=== PATIENT | male | born 1970 | race Hispanic/Latino ===

== ENCOUNTER 2019-10-11 08:14 | Observation (INO) | payer BC, OTHER ==
[~2019-10-11] VITALS: Ht 167.6 cm; Wt 100.7 kg
[2019-10-11] MEDS ORDERED: ASPIRIN 325 MG TAB PO ONE (09:00)
--- NOTE | 2019-10-11 09:00 | Emergency Department Note ---
History of Present Illnes History of Present Illness Chief Complaint: Back and Chest Pain History of Present Illness A This is a 49 year old male, with a history of NIDDM, hypertension, hy perlipidemia, status post MS, ASCVD with stent placement 2, and morbid obesity who presents with onset of right-sided upper back pain that started 2 days ago and is now radiating to the right upper chest. He states that the pain is more of an "ache," constant, and does seem to be worse with movement. 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 He denies any associated shortness of breath, diaphoresis, palpitations, nausea, or vomiting. Patient had coronary artery stents placed [address] Acosta, the patient has not been seen in follow-up since that time. Historian: Patient Arrival Mode: Car Assistant Editor Required: No Onset (how long ago): day(s) (2) Location: right upper back and right upper chest Quality: "ache" Radiation: Reports back Severity: moderate Onset quality: sudden Duration (how long): day(s) (2) Timing of current episode: constant Progression: unchanged Chronicity: new Context: Denies recent illness, Denies recent surgery, Denies trauma/injury Relieving factors: none Exacerbating factors: movement Associated symptoms: Denies chest pain, Denies cough, Denies fever/chills, Denies malaise, Denies nausea/vomiting, Denies rash, Denies shortness of breath, Denies syncope, Denies weakness Treatments prior to arrival: none Risk factors: Dm, HTN, MS, ASCVD s/p stents, morbid obesity Past Medical/Family History Physician Review I have reviewed the patient's past medical and family history. Any updates have been documented here. Past Medical History Recent Fever: No Clinical Suspicion of Infectio: No New/Unexplained Change in Ment: No Past Medical History: Hypertension, Diabetes (NDDM), MS (s/p stents x 2 in 2017;), Hyperlipedemia Other Medical History: Morbid Obesity Other Surgery: Wrist Social History Smoking Cessation: Never Smoker Alcohol Use: Occasional Any Illegal Drug Use: No TB Exposure/Symptoms: No Physically hurt or threatened: No Family History Family history of heart diseas: Yes Other Any Pre-Existing Lines (PICC,: No Is patient up to date on immun: No Review of Systems Review of Systems Constitutional: Denies chills, Denies fever, Denies malaise, Denies weakness EENTM: Reports no symptoms Cardiovascular: Reports chest pain; Denies edema Respiratory: Denies chest congestion, Denies cough, Denies pain with cough, Denies dyspnea Gastrointestinal: Denies abdominal pain, Denies constipation, Denies nausea, Denies vomiting Genitourinary: Denies dysuria, Denies frequency Musculoskeletal: Denies back pain, Denies muscle pain, Denies neck pain Integumentary: Denies change in color Neurological: Denies headache, Denies tingling, Denies weakness Psychological: Denies anxiety Endocrine: Reports no symptoms Hematological/Lymphatic: Reports no symptoms Review of other systems: All other systems negative Physical Exam Related Data Allergies: Coded Allergies: No Known Allergies (Unverified , 10/11/19) Vital signs reviewed: Yes Physical Exam CONSTITUTIONAL Constitutional: Present well-developed, Present well-nourished, Present morbidly obese; Absent cachectic, Absent distressed, Absent ill appearing HENT HENT: Present normocephalic, Present atraumatic, Present oropharynx clear/moist, Present nose normal; Absent nasal congestion, Absent rhinorrhea HENT L/R: Present left ext ear normal, Present right ext ear normal EYES Eyes: Reports PERRL, Reports conjunctivae normal NECK Neck: Present ROM normal PULMONARY Pulmonary: Present effort normal, Present breath sounds normal CARDIOVASCULAR Cardiovascular: Present regular rhythm, Present heart sounds normal, Present capillary refill normal, Present normal rate, Present bradycardia, Present murmur (2/6 LOBITO;), Present strong pulses, Present other (right upper chest wall, ttp, without crepitus;); Absent friction rub GASTROINTESTINAL Abdominal: Present soft, Present nontender, Present bowel sounds normal; Absent tender, Absent guarding GENITOURINARY Genitourinary: Present exam deferred SKIN Skin: Present warm, Present dry; Absent rash MUSCULOSKELETAL Musculoskeletal: Present ROM normal NEUROLOGICAL Neurological: Present alert, Present oriented x 3, Present no gross motor or sensory deficits PSYCHOLOGICAL Psychological: Present mood/affect normal, Present judgement normal Results Laboratory Laboratory CBC - nl; CMP - nl; Liver - nl; Cardiacs - normal; Lab results reviewed: Yes Imaging Imaging results reviewed: Yes Impressions [facility] [place] [address] Patient Name: NORRIS ARCINIEGA MR #: [id number] 2 : 1970 Age/Sex: 49/M Req #: [id number] Adm Physician: Ordered by: PASCALE FRANCOIS MD Report #: [id number] [facility] Room/Bed: Procedure: [id number] HOPD/CXR 2 VIEW - HOPD Exam Date: 10/11/19 Exam Time: 910 REPORT STATUS: Signed EXAMINATION: CXR 2 VIEW - HOPD INDICATION: Chest pain COMPARISON: None FINDINGS: LINES/TUBES:None LUNGS:The lungs are well-inflated. No focal consolidation or pulmonary edema. PLEURA:No pleural effusion or pneumothorax. MEDIASTINUM:The cardiomediastinal silhouette appears normal in size and shape. BONES/SOFT TISSUES:No acute osseous injury. ABDOMEN:No free air under the diaphragm. IMPRESSION: No focal pneumonia or pulmonary edema. Signed by: Leah Andersen MD on 10/11/2019 9:13 AM Dictated By: LEAH ANDERSEN MD 2 Transcribed By: ANGELIA on 10/11/19912 COPY TO: PASCALE FRANCOIS MD~ Imaging Comments CBC - normal; CMP - nl; Liver - normal; cardiacs - normal; Procedures 12 Lead ECG Interpretation ECG Interpretation : ECG: ECG 1 Assistant Editor: Interpreted by ED physician Date: Oct 11, 2019 Time: 08:17 Prior ECG tracings: not available for review Rhythm: sinus bradycardia Rate: bradycardia BPM: 48 QRS axis: normal ST segments normal: Yes T waves normal: Yes Clinical Impression: abnormal ECG Assessment & Plan Medical Decision Making MDM Case discussed with Dr. Gilbert, who will place patient in observation on telemetry, to rule out MS. 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 Patient's pain is atypical and somewhat reproducible, and located on the right side of the chest. However he is very high risk due to his multiple risk factors included a previous MS 3 years ago that required 2 cardiac stents, NIDDM, hypertension, hyperlipidemia, and morbid obesity. Pt to be placed in Obs. Tele at [facility]. 10:04 - case discussed with Dr. Gilbert; 10:25 - contacted Dr. Acosta's office for Cardiology Consult. Spoke with office and they took patient information and stated that they would contact Dr. Acosta, and relay the consult. He is apparently at the hospital, performing procedures. Assessment & Plan Final Impression: (1) Chest pain (2) Diabetes mellitus (3) Hypertension (4) Hyperlipidemia (5) Morbid obesity Depart Disposition: ADMITTED PASCALE FRANCOIS MD Oct 11, 2019 09:00
--- NOTE | 2019-10-11 09:16 | Diagnostic Imaging Report ---
EXAMINATION: CXR 2 VIEW - HOPD INDICATION: Chest pain COMPARISON: None FINDINGS: LINES/TUBES:None LUNGS:The lungs are well-inflated. No focal consolidation or pulmonary edema. PLEURA:No pleural effusion or pneumothorax. MEDIASTINUM:The cardiomediastinal silhouette appears normal in size and shape. BONES/SOFT TISSUES:No acute osseous injury. ABDOMEN:No free air under the diaphragm. IMPRESSION: No focal pneumonia or pulmonary edema. Signed by: Agatha Martin MD on 10/11/2019 9:13 AM
--- OUTSIDE RECORDS SUMMARY | 2019-10-11 09:22 | XMS REPORT | Clinical Summary ---
Author Author Claude [facility] Organization [facility] Address Unknown Phone Unavailable Care Team Providers Care Machine Group Leader Name Role Phone Angie Oneill PCP Allergies No Known Allergies Medications End Date Status Medication Sig Dispensed Refills Start Date Active clopidogrel (PLAVIX) 75 TAKE ONE (1) 3 06/23/ mg tablet TABLET(S) BY 8 MOUTH ONCE A DAY. Active olmesartan (BENICAR) 40 TAKE ONE (1) 6 MG tablet TABLET(S) BY 8 MOUTH ONCE A DAY. Active carvedilol (COREG) 25 MG TAKE ONE (1) 3 08/24 tablet TABLET(S) BY 8 MOUTH TWICE A DAY. 10/26/2019 Active metFORMIN XR Take 1 tablet 90 tablet 1 (GLUCOPHAGE-XR) 500 mg 24 (500 mg 9 hr tabletIndications: total) by Type 2 diabetes mellitus mouth daily without complication, with without long-term current breakfast. use of insulin ([facility]) 03/03/2020 Active empagliflozin 25 mg Take 1 tablet 90 tablet 1 02/23 tabletIndications: Type 2 (25 mg total) 0 diabetes mellitus without by mouth complication, without daily. long-term current use of insulin ([facility]) Active atorvastatin (LIPITOR) 20 TAKE ONE (1) 90 tablet 0 mg tabletIndications: TABLET(S) BY 0 Coronary artery disease MOUTH DAILY. involving [place] coronary artery of [place] heart without angina pectoris, Hypercholesteremia Active traZODone (DESYREL) 50 MG TAKE ONE (1) 30 tablet 0 tabletIndications: Sleep TABLET(S) BY 0 disturbances MOUTH NIGHTLY NEEDED FOR SLEEP. 10/20/2018 Discontinued prasugrel (EFFIENT) 10 mg TAKE ONE (1) 3 07/24 tablet TABLET(S) BY 8 MOUTH ONCE A DAY. 03/04/2019 Discontinued citalopram (CeleXA) 20 MG TAKE ONE (1) 6 07/24 tablet TABLET(S) BY 8 MOUTH ONCE A DAY. 10/20/2018 Discontinued (Med List Clean up) benzonatate (TESSALON) Take 100 mg 0 100 MG capsule by mouth 3 (three) times a day as needed for cough. 11/05/2018 Discontinued (Reorder) atorvastatin (LIPITOR) 20 TAKE ONE (1) 90 tablet 0 MG tabletIndications: TABLET(S) BY 9 Coronary artery disease MOUTH ONCE A involving [place] coronary DAY. artery of [place] heart without angina pectoris, Hypercholesteremia 03/04/2019 Discontinued (Reorder) atorvastatin (LIPITOR) 20 TAKE ONE (1) 90 tablet 0 MG tabletIndications: TABLET(S) BY 9 Coronary artery disease MOUTH ONCE A involving [place] coronary DAY. artery of [place] heart without angina pectoris, Hypercholesteremia 06/07/2019 Discontinued (Reorder) nystatin-triamcinolone Apply 30 g 0 (MYCOLOG) 100,000-0.1 topically 2 0 unit/gram-% (two) times a ointmentIndications: day. Penile lesion 08/28/2019 Discontinued atorvastatin (LIPITOR) 20 Take 1 tablet 90 tablet 1 MG tabletIndications: (20 mg total) 0 Coronary artery disease by mouth involving [place] coronary daily. artery of [place] heart Default OP without angina pectoris, ins Hypercholesteremia 08/30/2019 Discontinued (Med List Clean up) nystatin-triamcinolone Apply 30 g 0 (MYCOLOG) 100,000-0.1 topically 2 0 unit/gram-% (two) times a ointmentIndications: day. Penile lesion 10/03/2019 Discontinued (Reorder) traZODone (DESYREL) 50 MG Take 1 tablet 30 tablet 0 tabletIndications: Sleep (50 mg total) 0 disturbances by mouth nightly as needed for sleep. Active Problems Problem Noted Date Pounding in head 09/15/2019 Penile lesion 06/07/2019 Acute pain of left thigh 06/07/2019 Left lower quadrant pain 10/20/2018 Urinary frequency 10/20/2018 Type 2 diabetes mellitus without complication, withou t long-term current 10/20/2018 use of insulin Hypercholesteremia 02/09/2018 Heartburn 01/25/2018 Constipation 01/25/2018 Bloating 01/25/2018 Blood in stool 01/25/2018 Chronic fatigue 10/22/2017 Tonsillith 10/22/2017 Annual physical exam 08/17/2017 Anxiety 08/17/2017 Coronary artery disease involving [place] coronary art sarwat of [place] heart 08/17/2017 without angina pectoris IBS (irritable bowel syndrome) 08/02/2014 Snoring 08/02/2014 Hernia, umbilical 05/28/2009 Benign essential hypertension 04/27/2009 Obesity 04/27/2009 Encounters Care Team Description Date Type Specialty Oneill, Tram Bailey, DO Pounding in head 10/05/2019 Lab Lab 10/05/2019 Travel Oneill, Tram Bailey, DO Sleep disturbances 10/02/2019 Refill Family Medicine Angie Oneill, DO Pounding in head (Primary Dx) 09/23/2019 Orders Only Family Medicine 09/22/2019 Travel Oneill, Tram Bailey, DO Essential hypertension 09/16/2019 Lab Lab 09/16/2019 Travel Oneill, Tram Bailey, DO Essential hypertension (Primary Dx); Pounding in head 09/13/2019 Office Visit Family Medicine 09/13/2019 Travel Oneill, Tram Bailey, DO Dizziness (Primary Dx); Tensor fascia curtis syndrome; Pain of left thigh; Sleep disturbances; Coronary artery disease involving [place] coronary artery of [place] heart without angina pectoris; Benign essential hypertension 08/30/2019 Office Visit Family Medicine 08/30/2019 Travel Oneill, Tram Bailey, DO Coronary artery disease involving [place] coronary artery of [place] heart without angina pectoris; Hypercholesteremia 08/28/2019 Refill Family Medicine 08/25/2019 Travel Oneill, Tram Bailey, DO 07/27/2019 Telephone Family Medicine 07/27/2019 Travel Oneill, Tram Bailey, DO Penile lesion; Benign essential hypertension; Coronary artery disease involving [place] coronary artery of [place] heart without angina pectoris; Type 2 diabetes mellitus without complication, without long-term current use of insulin (HCC); Hypercholesteremia 06/24/2019 Lab Lab 06/24/2019 Travel Oneill, Tram Bailey, DO 06/20/2019 Telephone Internal Medicine Angie Oneill DO Benign essential hypertension (Primary D x); Coronary artery disease involving [place] coronary artery of [place] heart without angina pectoris; Type 2 diabetes mellitus without complication, without long-term current use of insulin (HCC); Hypercholesteremia; Penile lesion; Acute pain of left thigh 06/07/2019 Telemedicine [facility] Medicine 06/06/2019 Travel Angie Oneill DO Type 2 diabetes mellitus without complic ation, without long-term current use of insulin ([facility]) (Primary Dx); Dysuria; Penile lesion; Anxiety; Coronary artery disease involving [place] coronary artery of [place] heart without angina pectoris; Hypercholesteremia 03/04/2019 Office Visit [facility] Angie Oneill DO 03/01/2019 Telephone Internal Medicine Angie Oneill DO Anxiety; Hypercholesteremia; Type 2 diabetes mellitus without complication, without long-term current use of insulin (HCC); Benign essential hypertension 02/10/2019 Lab Lab Angie Oneill DO Type 2 diabetes mellitus without complic ation, without long-term current use of insulin (HCC) (Primary Dx); Anxiety; Hypercholesteremia; Benign essential hypertension; Urinary frequency; Coronary artery disease involving [place] coronary artery of [place] heart without angina pectoris 02/10/2019 Office Visit [facility] Angie Oneill DO Coronary artery disease involving [place] coronary artery of [place] heart without angina pectoris; Hypercholesteremia 11/05/2018 Refill [facility] Angie Oneill DO Type 2 diabetes mellitus without complic ation, without long-term current use of insulin (HCC) (Primary Dx); Umbilical hernia without obstruction and without gangrene 10/26/2018 Office Visit [facility] Angie Oneill DO Urinary frequency; Left lower quadrant pain; Benign essential hypertension; Hypercholesteremia; Type 2 diabetes mellitus without complication, without long-term current use of insulin (HCC) 10/20/2018 Lab Lab Angie Oneill DO Urinary frequency (Primary Dx); Left lower quadrant pain; Benign essential hypertension; Hypercholesteremia; Umbilical hernia without obstruction and without gangrene; Coronary artery disease involving [place] coronary artery of [place] heart without angina pectoris; Type 2 diabetes mellitus without complication, without long-term current use of insulin (HCC) 10/20/2018 Office Visit Family Medicine after 10/10/2018 Immunizations Name Administration Dates Next Due Tdap 08/02/2014 Family History Medical History Relation Name Comments Gout Father Diabetes Mother Hypertension Mother Relation Name Status Comments Father Mother Alive Social History Date Tobacco Use Types Packs/Day Years Used Former Smoker Cigarettes Smokeless Tobacco: Never Used Comments: 1 cig a day for about 6 months Drinks/Week oz/Week Comments Alcohol Use pt drinks about 12-1 5 beers a week Yes Sex Assigned at Date Recorded Not on file Industry Job Start Date Occupation Not on file Not on file Not on file Travel End Travel History Travel Start No recent travel history available. Date Recorded COVID-19 Exposure Response 10/05/2019 1:01 PM CDT In the last month, have you been in contact with No / Unsure someone who was confirmed or suspected to have Coronavirus / COVID-19? Last Filed Vital Signs Reading Time Taken Comments Vital Sign 119/71 09/13/2019 3:40 PM CDT Blood Pressure 65 09/13/2019 3:40 PM CDT Pulse 36.8 C (98.2 F) 09/13/2019 3:40 PM CDT Temperature - - Respiratory Rate 98% 09/13/2019 3:40 PM CDT Oxygen Saturation - - Inhaled Oxygen Concentration 101 kg (222 lb) 09/13/2019 3:40 PM CDT Weight 167.6 cm (5' 6") 09/13/2019 3:40 PM CDT Height 35.83 09/13/2019 3:40 PM CDT Body Mass Index Plan of Treatment Care Team Description Date Type Specialty Papa Oneil MD [id number] [address] 10/21/2019 Telemedicine Cardiology Health Maintenance Due Date Last Done Comments DIABETIC RETINAL EYE EXAM 1971 DIABETIC FOOT EXAM 1981 INFLUENZA VACCINE 10/25/2019 URINE MICROALBUMIN 06/23/2020 06/24/2019 Procedures Comments Procedure Name Priority Date/Time Associated Diag nosis CBC WITH PLATELET AND Routine 10/05/2019 Pounding in head DIFFERENTIAL 2:03 PM CDT MRA HEAD WO CONTRAST Routine 10/05/2019 Pounding in head 2:00 PM CDT HEMOGLOBIN A1C Routine 09/16/2019 Essential hyper tension 10:17 AM CDT TSH REFLEX TO T4F Routine 09/16/2019 Essential hy pertension 10:17 AM CDT LIPID PANEL Routine 09/16/2019 Essential hyper tension 10:17 AM CDT COMPREHENSIVE METABOLIC Routine 09/16/2019 Essent ial hypertension PANEL 10:17 AM CDT CBC WITH PLATELET AND Routine 09/16/2019 Essentia l hypertension DIFFERENTIAL 10:17 AM CDT ECG 12-LEAD Routine 08/29/2019 Dizziness 11:30 PM CDT CHLAMYDIA/N. GONORRHOEAE Routine 06/24/2019 Penil e lesion RNA, TMA 10:18 AM CDT CBC WITH PLATELET AND Routine 06/24/2019 Benign e ssential DIFFERENTIAL 10:18 AM CDT hypertension Coronary artery disease involving [place] coronary artery of [place] heart without angina pectoris Type 2 diabetes mellitus without complication, without long-term current use of insulin (HCC) Hypercholesteremia COMPREHENSIVE METABOLIC Routine 06/24/2019 Benign essential PANEL 10:18 AM CDT hypertension Coronary artery disease involving [place] coronary artery of [place] heart without angina pectoris Type 2 diabetes mellitus without complication, without long-term current use of insulin (HCC) Hypercholesteremia LIPID PANEL Routine 06/24/2019 Benign essentia l 10:18 AM CDT hypertension Coronary artery disease involving [place] coronary artery of [place] heart without angina pectoris Type 2 diabetes mellitus without complication, without long-term current use of insulin (HCC) Hypercholesteremia HEMOGLOBIN A1C Routine 06/24/2019 Benign essentia l 10:18 AM CDT hypertension Coronary artery disease involving [place] coronary artery of [place] heart without angina pectoris Type 2 diabetes mellitus without complication, without long-term current use of insulin (HCC) Hypercholesteremia MICROALBUMIN / CREATININE Routine 06/24/2019 Eamon gn essential URINE RATIO 10:18 AM CDT hypertension Coronary artery disease involving [place] coronary artery of [place] heart without angina pectoris Type 2 diabetes mellitus without complication, without long-term current use of insulin (HCC) Hypercholesteremia URINALYSIS, AUTOMATED Routine 06/24/2019 Benign e ssential WITH MICROSCOPY 10:18 AM CDT hypertension Coronary artery disease involving [place] coronary artery of [place] heart without angina pectoris Type 2 diabetes mellitus without complication, without long-term current use of insulin (HCC) Hypercholesteremia HEPATITIS B SURFACE Routine 06/24/2019 Penile les ion ANTIGEN 10:18 AM CDT HEPATITIS C ANTIBODY Routine 06/24/2019 Penile le arturo 10:18 AM CDT HIV 1/2 ANTIGEN/ANTIBODY, Routine 06/24/2019 Peni le lesion FOURTH GENERATION W/RFL 10:18 AM CDT RPR SCREEN Routine 06/24/2019 Penile lesion 10:18 AM CDT POC URINALYSIS DIPSTICK Routine 03/04/2019 Dysuri a 12:12 PM EXHIBITS CURATOR HEMOGLOBIN A1C Routine 02/10/2019 Anxiety 9:38 AM EXHIBITS CURATOR Hypercholesteremia Type 2 diabetes mellitus without complication, without long-term current use of insulin (HCC) Benign essential hypertension URINALYSIS, AUTOMATED Routine 02/10/2019 Anxiety WITH MICROSCOPY 9:38 AM EXHIBITS CURATOR Hypercholesteremia Type 2 diabetes mellitus without complication, without long-term current use of insulin (HCC) Benign essential hypertension LIPID PANEL Routine 02/10/2019 Anxiety 9:38 AM EXHIBITS CURATOR Hypercholesteremia Type 2 diabetes mellitus without complication, without long-term current use of insulin (HCC) Benign essential hypertension COMPREHENSIVE METABOLIC Routine 02/10/2019 Anxiet y PANEL 9:38 AM EXHIBITS CURATOR Hypercholesteremia Type 2 diabetes mellitus without complication, without long-term current use of insulin (HCC) Benign essential hypertension URINE CULTURE Routine 02/10/2019 Anxiety 9:38 AM EXHIBITS CURATOR Hypercholesteremia Type 2 diabetes mellitus without complication, without long-term current use of insulin (HCC) Benign essential hypertension US ABDOMINAL LIMITED Routine 10/26/2018 Left lowe r quadrant pain 8:02 AM CDT Umbilical hernia without obstruction and without gangrene HEMOGLOBIN A1C Routine 10/20/2018 Urinary frequen cy 4:28 PM CDT Left lower quadrant pain Benign essential hypertension Hypercholesteremia Type 2 diabetes mellitus without complication, without long-term current use of insulin (HCC) PROSTATE SPECIFIC ANTIGEN Routine 10/20/2018 Urin familia frequency 4:28 PM CDT Left lower quadrant pain Benign essential hypertension Hypercholesteremia Type 2 diabetes mellitus without complication, without long-term current use of insulin (HCC) TSH REFLEX TO T4F Routine 10/20/2018 Urinary freq uency 4:28 PM CDT Left lower quadrant pain Benign essential hypertension Hypercholesteremia Type 2 diabetes mellitus without complication, without long-term current use of insulin (HCC) LIPID PANEL Routine 10/20/2018 Urinary frequen cy 4:28 PM CDT Left lower quadrant pain Benign essential hypertension Hypercholesteremia Type 2 diabetes mellitus without complication, without long-term current use of insulin (HCC) COMPREHENSIVE METABOLIC Routine 10/20/2018 Urinar y frequency PANEL 4:28 PM CDT Left lower quadrant pain Benign essential hypertension Hypercholesteremia Type 2 diabetes mellitus without complication, without long-term current use of insulin (HCC) POC URINALYSIS DIPSTICK Routine 10/20/2018 Urinar y frequency 4:00 PM CDT after 10/10/2018 Results * CBC with platelet and differential (10/05/2019 2:03 PM CDT) Only the most recent of 3 results within the time period is included. WBC 10.0 3.8 - 10.8 [facility] Thousand/uL [facility] [place] RBC 4.81 4.20 - 5.80 [facility] Million/uL [facility] [place] HGB 14.8 13.2 - 17.1 g/dL [facility] [place] HCT 44.6 38.5 - 50.0 % [facility] [place] MCV 92.7 80.0 - 100.0 fL [facility] [place] MCH 30.8 27.0 - 33.0 pg [facility] [place] MCHC 33.2 32.0 - 36.0 g/dL [facility] [place] RDW 13.1 11.0 - 15.0 % [facility] [place] Platelet count 292 140 - 400 [facility] Thousand/uL [facility] [place] MPV 9.7 7.5 - 12.5 fL [facility] [place] Neutrophils, 6,890 1,500 - 7,800 [facility] absolute cells/uL [facility] [place] Lymphocytes, 2,260 850 - 3,900 cells/uL [facility] absolute [facility] [place] Monocytes, 550 200 - 950 cells/uL [facility] absolute [facility] [place] Eosinophils, 240 15 - 500 cells/uL [facility] absolute [facility] [place] Basophils, 60 0 - 200 cells/uL [facility] absolute [facility] [place] Neutrophils 68.9 % [facility] [place] Lymphocytes 22.6 % [facility] [place] Monocytes 5.5 % [facility] [place] Eosinophils 2.4 % [facility] [place] Basophils + RC 0.6 % [facility] [place] Specimen Blood Resulting Agency Comment Performing Organization Information: Site ID: [id number] Name: [facility] Address: [address] [place] [id number] Director: Girish Hernandez Performing Organization Address City/State/Zipcode Ph one Number [facility] [address] [phone] * MRA Head Wo Contrast (10/05/2019 2:00 PM CDT) Specimen Narrative Performed At [facility] Exam: Intracranial MRA without contrast History: Filling pulsation at bilateral frontal areas. Comparison studies: None Technique: 3D Intracranial Contrast: None Complications: None FINDINGS: Carotid arteries: No flow abnormalities in the intracrani al ICA's. Normal A1 and M1 segments. Vertebrobasilar Circulation: Vertebral arteries:No flow abnormalitie s. Basilar artery: Patent.No flow abnormal ities. Posterior cerebral arteries:No flow abn ormalities. origin on the right.. Normal Variants: ACom: Visualized. Pcoms: Patent right. Nonvisualized left . Vertebral arteries: Co-dominant. IMPRESSION: 1. Normal MRA Procedure Note Interface, Radiology Results Incoming - 10/05/2019 2:33 PM CDT Exam: Intracranial MRA without contrast History: Filling pulsation at bilateral frontal areas. Comparison studies: None Technique: 3D Intracranial Contrast: None Complications: None FINDINGS: Carotid arteries: No flow abnormalities in the intracranial ICA's. Normal A1 and M1 segments. Vertebrobasilar Circulation: Vertebral arteries:No flow abnormalities. Basilar artery: Patent.No flow abnormalities. Posterior cerebral arteries:No flow abnormalities. origin on the right.. Normal Variants: ACom: Visualized. Pcoms: Patent right. Nonvisualized left. Vertebral arteries: Co-dominant. IMPRESSION: 1. Normal MRA Performing Organization Address [facility] Ph one Number [facility] [address] [place] [address] * TSH reflex to T4 (09/16/2019 10:17 AM CDT) Only the most recent of 2 results within the time period is included. TSH reflex to 1.74 0.40 - 4.50 mIU/L Disrupt CK FT4 [facility] [place] Specimen Blood Resulting Agency Comment Performing Organization Information: Site ID: [id number] Name: [facility] Address: [address] [place] [id number] Director: Girish Hernandez Performing Organization Address [facility] one Number [facility] [address] [phone] * Hemoglobin A1c (09/16/2019 10:17 AM CDT) Only the most recent of 4 results within the time period is included. Hemoglobin A1C 6.5 (H) <5.7 % of total Hgb [facility] Comment: [facility] For someone without known MEHTA diabetes, a hemoglobin A1c value of 6.5% or greater indicates that they may have diabetes and this should be confirmed with a follow-up test. For someone with known diabetes, a value <7% indicates that their diabetes is well controlled and a value greater than or equal to 7% indicates suboptimal control. A1c targets should be individualized based on duration of diabetes, age, comorbid conditions, and other considerations. Currently, no consensus exists regarding use of hemoglobin A1c for diagnosis of diabetes for children. Specimen Blood Resulting Agency Comment Performing Organization Information: Site ID: [id number] Name: [facility] Address: [address] [place] [id number] Director: Girish Hernandez Performing Organization Address [facility] one Number [facility] [place] [phone] * Lipid panel (09/16/2019 10:17 AM CDT) Only the most recent of 4 results within the time period is included. [facility] Cholesterol, 134 <200 mg/dL [facility] total [facility] [place] HDL cholesterol 45 > OR = 40 mg/dL [facility] [place] Triglycerides 124 <150 mg/dL [facility] [place] LDL cholesterol 68 mg/dL (calc) [facility] calculated Comment: [facility] Reference range: <100 [place] Desirable range <100 mg/dL for primary prevention; <70 mg/dL for patients with CHD or diabetic patients with > or = 2 CHD risk factors. LDL-C is now calculated using the Bossman calculation, which is a validated novel method providing better accuracy than the Friedewald equation in the estimation of LDL-C. William MAYFIELD et al. SHERRY. 2013;310(19): 6222-2086 (http://education.[employer]/faq/LYP686) Cholesterol/HDL 3.0 <5.0 (calc) [facility] ratio [facility] [place] Non-HDL 89 <130 mg/dL (calc) [facility] cholesterol Comment: DIAGNOST[facility] For patients with diabetes [place] plus 1 major ASCVD risk factor, treating to a non-HDL-C goal of <100 mg/dL (LDL-C of <70 mg/dL) is considered a therapeutic option. Specimen Blood Resulting Agency Comment Performing Organization Information: Site ID: [id number] Name: [facility] Address: [address] [place] [id number] Director: Girish Hernandez Performing Organization Address City/[facility] one Number [facility] [place] [phone] * Comprehensive metabolic panel (09/16/2019 10:17 AM CDT) Only the most recent of 4 results within the time period is included. [facility] Glucose 98 65 - 99 mg/dL [facility] Comment: DI[facility]NOST[facility] Fasting [place] reference interval BUN 12 7 - 25 mg/dL [facility] [place] Creatinine 0.80 0.60 - 1.35 mg/dL [facility] [place] EGFR Non-Afr. 106 > OR = 60 [facility] [place] mL/min/1.73m2 [facility] EGFR 122 > OR = 60 [facility] [place] mL/min/1.73m2 [facility] [place] BUN/creatinine NOT APPLICABLE 6 - 22 (calc) [facility] ratio [facility] [place] Sodium 138 135 - 146 mmol/L [facility] [place] Potassium 4.6 3.5 - 5.3 mmol/L [facility] [place] Chloride 103 98 - 110 mmol/L [facility] [place] CO2 24 20 - 32 mmol/L [facility] [place] Calcium 8.8 8.6 - 10.3 mg/dL [facility] [place] Protein 7.0 6.1 - 8.1 g/dL [facility] [place] Albumin, S 4.2 3.6 - 5.1 g/dL [facility] [place] Globulin, total 2.8 1.9 - 3.7 g/dL [facility] (calc) [facility] [place] Albumin/globuli 1.5 1.0 - 2.5 (calc) [facility] n ratio [facility] [place] Total bilirubin 0.5 0.2 - 1.2 mg/dL [facility] [place] Alkaline 102 36 - 130 U/L [facility] phosphatase [facility] [place] AST 27 10 - 40 U/L [facility] [place] ALT 23 9 - 46 U/L [facility] [place] Specimen Blood Resulting Agency Comment Performing Organization Information: Site ID: [id number] Name: [facility] Address: [address] [place] [phone] Director: Girish Hernandez Performing Organization Address City/State/[facility] Ph one Number [facility] [address] [phone] * ECG 12 lead (08/29/2019 11:30 PM CDT) Ventricular 50 [facility] rate Atrial rate 50 [facility] MD interval 130 [facility] QRSD interval 90 [facility] QT interval 452 [facility] QTC interval 412 [facility] P axis 1 36 [facility] QRS axis 1 34 [facility] T wave axis 55 [facility] EKG impression Sinus bradycardia-Nonspecific [facility] E T wave abnormality-Abnormal ECG-No previous ECGs available- Specimen Narrative Performed At This result has an attachment that is n ot available. Performing Organization Address City/State/[facility] Ph one Number [facility] [address] [place] [address] * CHLAMYDIA/N. GONORRHOEAE RNA, TMA (06/24/2019 10:18 AM CDT) Chlamydia NOT DETECTED NOT DETECTED [facility] trachomatis DIAGNOSTICS RNA, TMA [place] Neisseria NOT DETECTED NOT DETECTED [facility] gonorrhoeae DIAGNOSTICS RNA, TMA [place] (Always Comment: [facility] message) The analytical performance DIAGNOSTIC S characteristics of this MEHTA assay, when used to test SurePath(TM) specimens have been determined by [facility]. The modifications have not been cleared or approved by the FDA. This assay has been validated pursuant to the CLIA regulations and is used for clinical purposes. For additional information, please refer to https://education.MiniTime.Groupon/faq/RQT631 (This link is being provided for information/ educational purposes only.) Specimen Blood Resulting Agency Comment Performing Organization Information: Site ID: [id number] Name: [facility] Address: [address] [place] [phone] Director: Girish Hernandez Performing Organization Address City/State/Zipcode Ph one Number [facility] [address] [phone] * HIV 1/2 ANTIGEN/ANTIBODY, FOURTH GENERATION W/RFL (06/24/2019 10:18 AM CDT) HIV AG/AB 4th NON-REACTIVE NON-REACTIVE [facility] gen Comment: DIAGNOSTICS HIV-1 antigen and HIV-1/HIV-2 [place] antibodies were not detected. There is no laboratory evidence of HIV infection. PLEASE NOTE: This information has been disclosed to you from records whose confidentiality may be protected by state law. If your state requires such protection, then the state law prohibits you from making any further disclosure of the information without the specific written consent of the person to whom it pertains, or as otherwise permitted by law. A general authorization for the release of medical or other information is NOT sufficient for this purpose. For additional information please refer to http://education.[employer].Groupon/faq/CHK884 (This link is being provided for informational/ educational purposes only.) The performance of this assay has not been clinically validated in patients less than 2 years old. Specimen Blood Resulting Agency Comment Performing Organization Information: Site ID: [id number] Name: [facility] Address: [address] [place] [phone] Director: Girish Hernandez Performing Organization Address [facility] one Number [facility] [place] [phone] * Hepatitis C antibody (06/24/2019 10:18 AM CDT) Pathologist [facility] Hepatitis C Ab NON-REACTIVE NON-REACTIVE [facility] Signal/cutoff 0.01 <1.00 [facility] Comment: DIAGNOSTICS HCV antibody was non-reactive. [place] There is no laboratory evidence of HCV infection. In most cases, no further action is required. However, if recent HCV exposure is suspected, a test for HCV RNA (test code 18039) is suggested. For additional information please refer to http://education.makerSQR/faq/RMV69l8 (This link is being provided for informational/ educational purposes only.) Specimen Blood Resulting Agency Comment Performing Organization Information: Site ID: [id number] Name: [facility] Address: [address] [place] [phone] Director: Girish Hernandez Performing Organization Address [facility] one Number [facility] [place] [address] * Microalbumin / creatinine urine ratio (06/24/2019 10:18 AM CDT) Pathologist [facility] Creatinine, 72 20 - 320 mg/dL [facility] urine, random DIAGNOSTICS [place] Microalbumin, 1.0 See Note: mg/dL [facility] urine Comment: DIAGNOSTICS Reference Range: [place] Reference Range Not established Microalbumin/cr 14 <30 mcg/mg creat [facility] eatinine ratio Comment: DIAGNOSTICS The ADA defines abnormalities ME[place]A in albumin excretion as follows: Category Result (mcg/mg creatinine) Normal <30 Microalbuminuria 30-299 Clinical albuminuria > OR = 300 The ADA recommends that at least two of three specimens collected within a 3-6 month period be abnormal before considering a patient to be within a diagnostic category. Specimen Blood Resulting Agency Comment Performing Organization Information: Site ID: [id number] Name: [facility] Address: [address] [place] [phone] Director: Girish Hernandez Performing Organization Address [facility] one Number [facility] [place] [phone] * RPR screen (06/24/2019 10:18 AM CDT) RPR (monitor) NON-REACTIVE NON-REACTIVE [facility] w/refl titer DIAGNOSTICS [place] Specimen Blood Resulting Agency Comment Performing Organization Information: Site ID: RGA Name: [email or web address] Address: [address] [place] [phone] Director: Girish Hernandez Performing Organization Address [facility] Ph one Number [facility] [place] [phone] * Hepatitis B surface antigen (06/24/2019 10:18 AM CDT) Pathologist [facility] Hepatitis B NON-REACTIVE NON-REACTIVE [facility] surface Ag DIAGNOSTICS [place] Specimen Blood Resulting Agency Comment Performing Organization Information: Site ID: RGA Name: [facility] Address: [address] [place] [phone] Director: Girish Hernandez Performing Organization Address [facility] Ph one Number [facility] [address] [phone] * Urinalysis, automated with microscopy (06/24/2019 10:18 AM CDT) Only the most recent of 2 results within the time period is included. Color, UA YELLOW YELLOW [facility] [place] Appearance CLEAR CLEAR [facility] [place] Specific 1.025 1.001 - 1.035 [facility] gravity, urine DIAGNOSTICS [place] pH, urine < OR = 5.0 5.0 - 8.0 [facility] [place] Glucose, urine 3+ (A) NEGATIVE [facility] [place] Bilirubin, UA NEGATIVE NEGATIVE [facility] [place] Ketones, UA NEGATIVE NEGATIVE [facility] [place] Occult blood, NEGATIVE NEGATIVE [facility] urine [facility] [place] Protein, UA NEGATIVE NEGATIVE [facility] [place] Nitrite, UA NEGATIVE NEGATIVE [facility] [place] Leukocyte NEGATIVE NEGATIVE [facility] esterase, UA DI[facility]NOSTICS [place] WBC, UA NONE SEEN < OR = 5 /HPF [facility] [place] RBC, UA NONE SEEN < OR = 2 /HPF [facility] [place] Squamous NONE SEEN < OR = 5 /HPF [facility] epithelial DIAGNOSTICS cells, UA [place] Bacteria, UA NONE SEEN NONE SEEN /HPF [facility] [place] Hyaline casts, NONE SEEN NONE SEEN /LPF [facility] UA [facility]ICS [place] Specimen Blood Resulting Agency Comment Performing Organization Information: Site ID: [id number] Name: [facility] Address: [address] [place] [phone] Director: Girish Hernandez Performing Organization Address [facility] one [facility] [place] [employer] [place] [phone] * POC urinalysis dipstick (03/04/2019 12:12 PM EXHIBITS CURATOR) Only the most recent of 2 results within the time period is included. Color urine, Yellow POC Clarity urine, Clear POC Glucose urine, 3+ (A) Negative POC Bilirubin Negative Negative urine, POC Ketones urine, Negative Negative POC Specific 1.020 1.005 - 1.030 gravity urine, POC Blood urine, Trace (A) Negative POC pH urine, POC 5.5 5.0, 5.5, 6.0, 6.5, 7.0, 7.5, 8.0, 8.5 Protein urine, Negative Negative POC Urobilinogen <2.0 <2.0 urine, POC Nitrite urine, Negative Negative POC Leukocyte Negative Negative esterase urine, POC Specimen Urine * Urine culture (02/10/2019 9:38 AM EXHIBITS CURATOR) Urine culture SEE NOTE [facility] Comment: DIAGNOSTICS CULTURE, URINE, [facility] Micro Number: [id number] Test Status: Final Specimen Source: URINE Specimen Quality: Adequate Result: No Growth Specimen Urine Resulting Agency Comment Performing Organization Information: Site ID: [facility] Name: [facility] Address: [address] [place] [phone] Director: Girish Hernandez Performing Organization Address [facility] one [facility] [place] [employer] [place] [phone] * US Abdominal Limited (10/26/2018 8:02 AM CDT) Specimen Narrative Performed At EXAMINATION: US ABDOMINAL LIMITED [facility] INDICATION: Left lower quadrant pain. COMPARISON: None available TECHNIQUE: Targeted ultrasound of the l eft lower quadrant in the area of concern was performed. IMPRESSION: 1. Targeted ultrasound of the left lo wer quadrant demonstrates no sonographically visible abnormality. 2. Targeted ultrasound of the umbilic us demonstrates evidence of a prior umbilical hernia repair. With Valsalva, there is a small recurrent umbilical hernia containing fat with a neck measu ring up to approximately 5 mm. Procedure Note Interface, Radiology Results Incoming - 10/26/2018 8:34 AM CDT EXAMINATION: US ABDOMINAL LIMITED INDICATION: Left lower quadrant pain. COMPARISON: None available TECHNIQUE: Targeted ultrasound of the left lower quadrant in the area of concern was performed. IMPRESSION: 1. Targeted ultrasound of the left lowe r quadrant demonstrates no sonographically visible abnormality. 2. Targeted ultrasound of the umbilicus demonstrates evidence of a prior umbilical hernia repair. With Valsalva, there is a small recurrent umbilical hernia containing fat with a neck measuring up to approximately 5 mm. Performing Organization Address [facility] one Number [facility] [address] [place] [address] * Prostate specific antigen (10/20/2018 4:28 PM CDT) PSA 1.0 < OR = 4.0 ng/mL [facility] Comment: DIAGNOSTICS The total PSA value from this [place] assay system is standardized against the WHO standard. The test result will be approximately 20% lower when compared to the equimolar-standardized total PSA (Noel [place]). Comparison of serial PSA results should be interpreted with this fact in mind. This test was performed using the Siemens chemiluminescent method. Values obtained from different assay methods cannot be used interchangeably. PSA levels, regardless of value, should not be interpreted as absolute evidence of the presence or absence of disease. Specimen Blood Resulting Agency Comment Performing Organization Information: Site ID: RGA Name: [facility] Address: [address] [place] [phone] Director: Girish Hernandez Performing Organization Address 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
--- OUTSIDE RECORDS SUMMARY | 2019-10-11 09:22 | XMS REPORT | Continuity of Care Document ---
Author Author [facility] t Organization [facility] Address 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 Role Phone Alvarenga DO, Bailey Tram PCP Gabrielle FRANCOIS Attphys Unavailable Alvarenga DO, Bailey Tram Attphys Payers Payer Name Policy Type Policy Number Effective Date Expiration Date S ource BCBSBCBS CHOICE PPO/FEDERAL EMPL PPOxxxxxxxxxxxx2014-Pre sentPPO xxxxxxxxxxxx 2014 00:00:00 Claude Rasmussen Problems Condition Name Condition Details Condition Category Status Onset Date Resolution Date Last Treatment Date Treating Clinician Comments Source Pounding in head Pounding in head Disease Active 2019-09-15 00:00:00 Claude Rasmussen Penile lesion Penile lesion Disease Active 2019-06-07 00:00:00 Claude Rasmussen Acute pain of left thigh Acute pain of left thigh Disease Acti ve 2019-06-07 00:00:[address] Left lower quadrant pain Left lower quadrant pain Disease Acti ve 2018-10-20 00:00:[address] Urinary frequency Urinary frequency Disease Active 2018-10-20 00:00:00 Claude Rasmussen Type 2 diabetes mellitus without complic ation, without long-term current use of insulin Type 2 diabetes mellitus without complic ation, without long-term current use of insulin Disease Active 2018-10-20 00:00:00 Claude Rasmussen Hypercholesteremia Hypercholesteremia Disease Active 2018-02-09 00:00:0 0 Claude Rasmussen Heartburn Heartburn Disease Active 2018-01-25 00:00:00 Claude Rasmussen Constipation Constipation Disease Active 2018-01-25 00:00:00 Claude Rasmussen Bloating Bloating Disease Active 2018-01-25 00:00:00 Claude Rasmussen Blood in stool Blood in stool Disease Active 2018-01-25 00:00:00 Claude Rasmussen Chronic fatigue Chronic fatigue Disease Active 2017-10-22 00:00:00 Claude Rasmussen Tonsillith Tonsillith Disease Active 2017-10-22 00:00:00 Claude Rasmussen Annual physical exam Annual physical exam Disease Active 00:00:00 Claude Rasmussen Anxiety Anxiety Disease Active 2017-08-17 00:00:00 Claude Rasmussen Coronary artery disease involving sen[place]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[place] heart without angina pectoris Coronary artery disease involving [place]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[place] heart without angina pectoris Disease Active 2017-08-17 00:00:00 Claude Rasmussen IBS (irritable bowel syndrome) IBS (irritable bowel syndrome) Disea se Active 2014-08-02 00:00:00 Claude Rasmussen Snoring Snoring Disease Active 2014-08-02 00:00:00 Claude Rasmussen Hernia, umbilical Hernia, umbilical Disease Active 2009-05-28 00:00:00 Claude Rasmussen Benign essential hypertension Benign essential hypertension Disease Active 2009-04-27 00:00:00 Claude Rasmussen Obesity Obesity Disease Active 2009-04-27 00:00:00 Claude Rasmussen Allergies, Adverse Reactions, Alerts This patient has no known allergies or adverse reactions. Family History Family Member Diagnosis Comments Start Date Stop Date Source Natural father Gout [facility] Natural mother Diabetes [facility] Natural mother Hypertension Claude Rasmussen Social History Social Habit Start Date Stop Date Quantity Comments Source History of tobacco use Cigarette Smoker Claude Rasmussen Sex Assigned At [facility] Exposure to SARS-CoV-2 (event) Not sure Claude Rasmussen Alcohol intake 2019-09-15 00:00:00 2019-09-15 00:00:00 Current drinker of alcohol (finding) Claude Rasmussen Tobacco Comment 2017-08-17 00:00:00 2017-08-17 00:00:00 1 cig a day for about 6 months Claude Rasmussen Alcohol Comment 2017-08-17 00:00:00 2017-08-17 00:00:00 pt drink s about 12-15 beers a week Claude Rasmussen Smoking Status Start Date Stop Date Source Former smoker 2019-09-15 00:00:00 2019-09-15 00:00:00 Claude Rasmussen Medications Ordered Medication Name Filled Medication Name Start Date Stop Da te Current Medication? Ordering Clinician Indication Dosage Frequency Signature (SIG) Comments Components Source traZODone (DESYREL) 50 MG tablet 2019-10-03 00:00:00 Yes Sleep disturbances TAKE ONE (1) TABLET(S) BY MOUTH NIGHTLY A S NEEDED FOR SLEEP. Claude Rasmussen traZODone (DESYREL) 50 MG tablet 2019-08-30 00:00:00 2019-09 17:18:43 No Sleep disturbances 50mg QD Take 1 tablet (50 mg total) by mouth nightly as needed for sleep. Claude Rasmussen atorvastatin (LIPITOR) 20 mg tablet 2019-08-28 00:00:00 Yes Hypercholesteremia TAKE ONE (1) TABLET(S) BY MOUTH DAILY. Claude Rasmussen nystatin-triamcinolone (MYCOLOG) 100,000-0.1 unit/gram-% oin tment 2019-06-07 00:00:00 2019-08-30 00:00:00 No Penile lesion Q.5D Apply topically 2 (two) times a day. Claude Rasmussen empagliflozin 25 mg tablet 2019-03-04 00:00:00 2020-03-03 23 :59:00 No Type 2 diabetes mellitus without complication, without long-term current use of insulin (HCC) 25mg QD Take 1 tablet (25 mg total) by mouth daily. Claude Rasmussen atorvastatin (LIPITOR) 20 MG tablet 2019-03-04 00:00:0 0 2019-08-28 00:00:00 No Hypercholesteremia 20mg QD Take 1 ta blet (20 mg total) by mouth daily. Default OP ins Claude Rasmussen nystatin-triamcinolone (MYCOLOG) 100,000-0.1 unit/gram-% oin tment 2019-03-04 00:00:00 2019-06-07 00:00:00 No Penile lesion Q.5D Apply topically 2 (two) times a day. Claude Rasmussen atorvastatin (LIPITOR) 20 MG tablet 2018-11-05 00:00:0 0 2019-03-04 00:00:00 No Hypercholesteremia TAKE ONE (1) TABLET(S) BY ISABELLA TH ONCE A DAY. Claude Rasmussen metFORMIN XR (GLUCOPHAGE-XR) 500 mg 24 hr tablet 2018-10-26 00:00:00 2019-10-26 23:59:00 No Type 2 diabetes sigifredo itus without complication, without long-term current use of insulin (HCC) 500mg QD T yola 1 tablet (500 mg total) by mouth daily with breakfast. Claude Sheridan odrandal benzonatate (TESSALON) 100 MG capsule 2018-10-20 15:38 :36 2018-10-20 00:00:00 No 100mg Q.[id number] Take 100 mg by mouth 3 (three) times a day as needed for cough. Claude Rasmussen atorvastatin (LIPITOR) 20 MG tablet 2018-08-10 00:00:0 0 2018-11-05 00:00:00 No Hypercholesteremia TAKE ONE (1) TABLET(S) BY ISABELLA TH ONCE A DAY. Claude Rasmussen olmesartan (BENICAR) 40 MG tablet 2017-10-15 00:00:00 Yes TAKE ONE (1) TABLET(S) BY MOUTH ONCE A DAY. Isaias Rasmussen carvedilol (COREG) 25 MG tablet 2017-08-24 00:00:00 Yes TAKE ONE (1) TABLET(S) BY MOUTH TWICE A DAY. Claude Rasmussen prasugrel (EFFIENT) 10 mg tablet 2017-08-07 00:00:00 2018-09 00:00:00 No TAKE ONE (1) TABLET(S) BY MOUTH ONCE A DAY. Claude Rasmussen citalopram (CeleXA) 20 MG tablet 2017-08-04 00:00:00 2019-02 00:00:00 No TAKE ONE (1) TABLET(S) BY MOUTH ONCE A DAY. Claude Rasmussen clopidogrel (PLAVIX) 75 mg tablet 2017-06-23 00:00:00 Yes TAKE ONE (1) TABLET(S) BY MOUTH ONCE A DAY. [facility] Immunizations Ordered Immunization Name Filled Immunization Name Date Status Comments Source Tdap 2014-08-02 00:00:00 Completed [facility] Vital Signs Vital Name Observation Time Observation Value Comments Source Systolic blood pressure 2019-09-13 15:40:00 119 mm[Hg] Claude Rasmussen Diastolic blood pressure 2019-09-13 15:40:00 71 mm[Hg] Claude Rasmussen Heart rate 2019-09-13 15:40:00 65 /min Claude Rasmussen Body temperature 2019-09-13 15:40:00 36.78 Indu H[employer] jelly [facility] Body height 2019-09-13 15:40:00 167.6 cm Claude Rasmussen Body weight 2019-09-13 15:40:00 100.699 kg Claude Rasmussen BMI 2019-09-13 15:40:00 35.83 kg/m2 Claude Rasmussen Oxygen saturation in Arterial blood by Pulse oximetry 09-12 15:40:00 98 /min Claude Rasmussen Procedures Procedure Date / Time Performed Performing Clinician Sour e CBC WITH PLATELET AND DIFFERENTIAL 2019-10-05 14:03:00 Alvarenga, Timoteo dee Lynn Rasmussen MRA HEAD WO CONTRAST 2019-10-05 14:00:08 Alvarenga, Angie Rasmussen CBC WITH PLATELET AND DIFFERENTIAL 2019-09-16 10:17:00 Alvarenga, Timoteo dee Bailey Claude Rasmussen COMPREHENSIVE METABOLIC PANEL 2019-09-16 10:17:00 Alvarenga, Angie Rasmussen LIPID PANEL 2019-09-16 10:17:00 Alvarenga, Angie [facility] TSH REFLEX TO T4F 2019-09-16 10:17:00 Alvarenga, Angie Arce [facility] HEMOGLOBIN A1C 2019-09-16 10:17:00 Alvarenga, Angie [facility] ECG 12-LEAD 2019-08-29 23:30:26 Alvarenga, Angie [facility] RPR SCREEN 2019-06-24 10:18:00 Alvarenga, Angie [facility] HIV 1/2 ANTIGEN/ANTIBODY, FOURTH GENERATION W/RFL 2019-06-24 10:18:00 Alvarenga, Angie [facility] HEPATITIS C ANTIBODY 2019-06-24 10:18:00 Alvarenga, Angie mayo [facility] HEPATITIS B SURFACE ANTIGEN 2019-06-24 10:18:00 Alvarenga, Angie Arce [facility] URINALYSIS, AUTOMATED WITH MICROSCOPY 2019-06-24 10:18:00 Alvarenga, Angie Rasmussen MICROALBUMIN / CREATININE URINE RATIO 2019-06-24 10:18:00 Alvarenga, Angie Lazaroist HEMOGLOBIN A1C 2019-06-24 10:18:00 Alvarenga, Angie [facility] LIPID PANEL 2019-06-24 10:18:00 AlvarengaAngie [facility] COMPREHENSIVE METABOLIC PANEL 2019-06-24 10:18:00 AlvarengaAngie [facility] CBC WITH PLATELET AND DIFFERENTIAL 2019-06-24 10:18:00 AlvarengaTimoteo [facility] CHLAMYDIA/N. GONORRHOEAE RNA, TMA 2019-06-24 10:18:00 Alvarenga Angie [facility]ce [facility] POC URINALYSIS DIPSTICK 2019-03-04 12:12:00 Alvarenga Angie Bailey Krista Rasmussen URINE CULTURE 2019-02-10 09:38:00 AlvarengaAngie [facility] COMPREHENSIVE METABOLIC PANEL 2019-02-10 09:38:00 Alvarenga Angie [facility] LIPID PANEL 2019-02-10 09:38:00 AlvarengaAngie [facility] URINALYSIS, AUTOMATED WITH MICROSCOPY 2019-02-10 09:38:00 Mai Angie [facility]ce [facility] HEMOGLOBIN A1C 2019-02-10 09:38:00 AlvarengaAngie [facility] US ABDOMINAL LIMITED 2018-10-26 08:02:41 Alvarenga Angie Vazquez maria esther Rasmussen COMPREHENSIVE METABOLIC PANEL 2018-10-20 16:28:00 AlvarengaAngie Claude Rasmussen LIPID PANEL 2018-10-20 16:28:00 AlvarengaAngie [facility] TSH REFLEX TO T4F 2018-10-20 16:28:00 Mai Angie Arce [facility] PROSTATE SPECIFIC ANTIGEN 2018-10-20 16:28:00 Mai Angie Bailey Renzo juradoston [facility] HEMOGLOBIN A1C 2018-10-20 16:28:00 AlvarengaAngie [facility] POC URINALYSIS DIPSTICK 2018-10-20 16:00:00 Mai Angie Bailey Krista Rasmussen Plan of Care Planned Activity Planned Date Details Comments Source Future Scheduled Test 2020-06-23 00:00:00 URINE MICROALBUMIN [code = URINE MICROALBUMIN] Claude Rasmussen Future Scheduled Test 2019-10-25 00:00:00 INFLUENZA VACCINE [code = INFLUENZA VACCINE] Claude Rasmussen Future Scheduled Test 1981 00:00:00 DIABETIC FOOT EXAM [code = DIABETIC FOOT EXAM] Claude Rasmussen Future Scheduled Test 1970 00:00:00 DIABETIC RETINAL E YE EXAM [code = DIABETIC RETINAL EYE EXAM] Claude Rasmussen Encounters Start Date/Time End Date/Time Encounter Type Admission Type [facility] Care Department Encounter ID Source 2019-10-05 00:00:00 2019-10-05 00:00:00 Outpatient ALVARENGA, TRAM HM [facility] [id number] [facility] 2019-10-05 00:00:00 2019-10-05 00:00:00 Outpatient ALVARENGA, TRAM HM H [facility] [id number] [facility] 2019-09-16 00:00:00 2019-09-16 00:00:00 Outpatient ALVARENGA, TRAM HM H [facility] [id number] [facility] 2019-09-13 00:00:00 2019-09-13 00:00:00 Outpatient ALVARENGA, TRAM HM H [facility] [id number] [facility] 2019-08-30 00:00:00 2019-08-30 00:00:00 Outpatient ALVARENGA, TRAM HM H [facility] [id number] [facility] 2019-06-24 00:00:00 2019-06-24 00:00:00 Outpatient ALVARENGA, TRAM HM H HM [id number] [facility] 2019-06-07 00:00:00 2019-06-07 00:00:00 Outpatient ALVARENGA, TRAM HM H [facility] [id number] [facility] Results Test Description Test Time Test Comments Results Result Comments Source CXR 2 VIEW - HOPD 2019-10-11 09:13:00 [place] [address] Patient Name: NORRIS ARCINIEGA MR #: [id number] : 1970 Age/Sex: 49/M Req #: [id number] Adm Physician: Ordered by: PASCALE FRANCOIS MD Report #: [id number] Location: [facility] Room/Bed: Procedure: [id number] HOPD/CXR 2 VIEW - HOPD Exam Date: 10/11/19 Exam Time: 910 REPORT STATUS: Signed EXAMINATION: CXR 2 VIEW - HOPD INDICATION: Chest pain COMPARISON: None FINDINGS: LINES/TUBES:None LUNGS:The lungs are well-inflated. No focal consolidation or pulmonary edema. PLEURA:No pleural effusion or pneumothorax. MEDIASTINUM:The cardiomediastinal silhouette appears normal in size and shape. BONES/SOFT TISSUES:No acute osseous injury. ABDOMEN:No free air under the diaphragm. IMPRESSION: No focal pneumonia or pulmonary edema. Signed by: Leah Andersen MD on 10/11/2019 9:13 AM Dictated By: LEAH ANDERSEN MD 2 Transcribed By: ANGELIA on 10/11/19912 COPY TO: PASCALE FRANCOIS MD CBC with platelet and differential 2019-10-06 07:05:00 Test Item WBC (test code = 6690-2) 10.0 3.8- 10.8 Thousand/uL RBC (test code = 789-8) 4.81 4.20- 5.80 Million/uL HGB (test code = 718-7) 14.8 g/dL 13.2-17.1 HCT (test code = 4544-3) 44.6 % 38.5-50 MCV (test code = 787-2) 92.7 fL 80-100 MCH (test code = 785-6) 30.8 pg 27-33 MCHC (test code = 786-4) 33.2 g/dL 32-36 RDW (test code = 788-0) 13.1 % 11-15 Platelet count (test code = 777-3) 292 140- 400 Thousand/u L MPV (test code = 776-5) 9.7 fL 7.5-12.5 Neutrophils, absolute (test code = 751-8) 6890 1,500 - 7,80 0 cells/uL Lymphocytes, absolute (test code = 731-0) 2260 850- 3,900 c ells/uL Monocytes, absolute (test code = 742-7) 550 200- 950 cells /uL Eosinophils, absolute (test code = 711-2) 240 15- 500 cell s/uL Basophils, absolute (test code = 704-7) 60 0- 200 cells/u L Neutrophils (test code = 770-8) 68.9 % Lymphocytes (test code = 736-9) 22.6 % Monocytes (test code = 5905-5) 5.5 % Eosinophils (test code = 713-8) 2.4 % Basophils + RC (test code = 706-2) 0.6 % RAC (test code = RAC) Performing Organization Info rmation: Site ID: RGA Name: [facility] Address: [address] [place] [phone] Director: Girish Hernandez [place] [id number] 08:02:00* Test Item Value Reference Range Interpretation Comments Glucose (test code = 2345-7) 98 mg/dL 65-99 Fasting reference interval BUN (test code = 3094-0) 12 mg/dL 7-25 Creatinine (test code = 2160-0) 0.80 mg/dL 0.6-1.35 EGFR Non-Afr. Cymraes (test code = 2775) 106 > OR = 60 mL /min/1.73m2 EGFR (test code = 57408-7) 122 > OR = 60 mL/min/1.73m2 BUN/creatinine ratio (test code = 3097-3) NOT APPLICABLE 6- 22 (alea c) Sodium (test code = 2951-2) 138 mmol/L 135-146 Potassium (test code = 2823-3) 4.6 mmol/L 3.5-5.3 Chloride (test code = 2075-0) 103 mmol/L 98-110 CO2 (test code = 2027-9) 24 mmol/L 20-32 Calcium (test code = 40777-0) 8.8 mg/dL 8.6-10.3 Protein (test code = 2885-2) 7.0 g/dL 6.1-8.1 Albumin, S (test code = 1751-7) 4.2 g/dL 3.6-5.1 Globulin, total (test code = 27081-6) 2.8 1.9- 3.7 g/dL (c alc) Albumin/globulin ratio (test code = 1759-0) 1.5 1.0- 2.5 ( calc) Total bilirubin (test code = 1974-2) 0.5 mg/dL 0.2-1.2 Alkaline phosphatase (test code = 6768-6) 102 U/L 36-130 AST (test code = 1920-8) 27 U/L 10-40 ALT (test code = 1742-6) 23 U/L 9-46 RAC (test code = RAC) Performing Organization Info rmation: Site ID: RGA Name: [facility] Address: [address] [place] [phone] Director: Girish Hernandez [facility] [id number] 08:02:00* Test Item Value Reference Range Interpretation Comments Cholesterol, total (test code = 2093-3) 134 mg/dL <200 HDL cholesterol (test code = 2085-9) 45 mg/dL > OR = 40 Triglycerides (test code = 2571-8) 124 mg/dL <150 LDL cholesterol calculated (test code = 61745-4) 68 mg/dL (calc) Reference range: <100 Desirable range <100 mg/dL for primary prevention; <70 mg/dL for patients with CHD or diabetic patients with > or = 2 CHD risk factors. LDL-C is now calculated using the William-Mary calculation, which is a validated novel method providing better accuracy than the Friedewald equation in the estimation of LDL-C. William SS et al. SHERRY. 2013;310(19): 8317-8420 (http:/ /education.[employer]/faq/YWU442) Cholesterol/HDL ratio (test code = 9830-1) 3.0 <5.0 (calc) Non-HDL cholesterol (test code = 86706-9) 89 <130 mg/dL ( calc) For patients with diabetes plus 1 major ASCVD risk factor, treating to a non-HDL-C goal of <100 mg/dL (LDL-C of <70 mg/dL) is considered a therapeutic option. RAC (test code = RAC) Performing Organization Info rmation: Site ID: RGA Name: [facility] Address: [address] [place] [phone] Director: Girish Hernandez [place] [facility] [id number] 08:02:00* Test Item Value Reference Range Interpretation Comments Hemoglobin A1C (test code = 4548-4) 6.5 <5.7 % of total Hg b H For someone without known diabetes, a hemoglobin O9enogxh of 6.5% or greater indicates that they [...] considerations. Currently, no consensus exists regarding use ofhemoglobin A1c for diagnosis of diabetes for children. RAC (test code = RAC) Performing Organization Info rmation: Site ID: RGA Name: [facility] Address: [address] [place] [address] Director: Girish Hernandez Lab Interpretation (test code = 65393-9) Abnormal [place] [facility] reflex to [id number] 08:02:00* Test Item Value Reference Range Interpretation Comments TSH reflex to FT4 (test code = 3016-3) 1.74 0.40- 4.50 mIU/ L RAC (test code = RAC) Performing Organization Info rmation: Site ID: RGA Name: [facility] Address: [address] [place] [address] Director: Girish Arce MethodistECG 12 [id number] 11:40:26* Test Item Value Reference Range Interpretation Comments Ventricular rate (test code = 253) 50 Atrial rate (test code = 255) 50 IL interval (test code = 266) 130 QRSD interval (test code = 260) 90 QT interval (test code = 264) 452 QTC interval (test code = 265) 412 P axis 1 (test code = 267) 36 QRS axis 1 (test code = 268) 34 T wave axis (test code = 270) 55 EKG impression (test code = 273) Sinus bradycardia-Non specific T wave abnormality-Abnormal ECG-No previous ECGs available- [place] [facility], automated with [id number] 22:09:00* Test Item Value Reference Range Interpretation Comments Color, UA (test code = 5778-6) YELLOW YELLOW Appearance (test code = 5767-9) CLEAR CLEAR Specific gravity, urine (test code = 5811-5) 1.025 1.001-1.0 35 pH, urine (test code = 5803-2) < OR = 5.0 5.0-8.0 Glucose, urine (test code = 64123-9) 3+ NEGATIVE A Bilirubin, UA (test code = 5770-3) NEGATIVE NEGATIVE Ketones, UA (test code = 2514-8) NEGATIVE NEGATIVE Occult blood, urine (test code = 5794-3) NEGATIVE NEGATIVE Protein, UA (test code = 24993-1) NEGATIVE NEGATIVE Nitrite, UA (test code = 5802-4) NEGATIVE NEGATIVE Leukocyte esterase, UA (test code = 5799-2) NEGATIVE NEGATIVE WBC, UA (test code = 5821-4) NONE SEEN < OR = 5 /HPF RBC, UA (test code = 59635-9) NONE SEEN < OR = 2 /HPF Squamous epithelial cells, UA (test code = 58572-6) NONE SEEN < OR = 5 /HPF Bacteria, UA (test code = 5769-5) NONE SEEN NONE SEEN /HPF Hyaline casts, UA (test code = 5796-8) NONE SEEN NONE SEEN /LPF RAC (test code = RAC) Performing Organization Info rmation: Site ID: RGA Name: [facility] Address: [address] [place] [phone] Director: Girish Hernandez Lab Interpretation (test code = 20893-2) Abnormal [place] [facility] [facility] B surface [id number] 22:09:00* Test Item Value Reference Range Interpretation Comments Hepatitis B surface Ag (test code = 5196-1) NON-REACTIVE NON-REACTI VE RAC (test code = RAC) Performing Organization Info rmation: Site ID: RGA Name: [facility] Address: [address] [place] [phone] Director: Girish Hernandez [place] Methodist[facility]PR [id number] 22:09:00* Test Item Value Reference Range Interpretation Comments RPR (monitor) w/refl titer (test code = 57096-4) NON-REACTIVE NON-R EACTIVE RAC (test code = RAC) Performing Organization Info rmation: Site ID: [place] Name: [facility] Address: [address] [place] [phone] Director: Girish Hernandez [place] [facility]album[facility] / creatinine urine [id number] 22:09:00* Test Item Value Reference Range Interpretation Comments Creatinine, urine, random (test code = 2161-8) 72 mg/dL 20-320 Microalbumin, urine (test code = 33221-6) 1.0 mg/dL See Note: Reference Range:Reference RangeNot established Microalbumin/creatinine ratio (test code = 9318-7) 14 <30 mcg/mg creat The ADA defines abnormalities in albuminexcretion as follows: Category Result (mcg/mg creatinine) Normal <30Microalbuminuria 30-299 Clinical albuminuria > OR = 300 The ADA recommends that at least two of threespecimens collected within a 3-6 month period beabnormal before considering a patient to bewithin a diagnostic category. RAC (test code = RAC) Performing Organization Info rmation: Site ID: [place] Name: [facility] Address: [address] [place] [phone] Director: Girish Hernandez [place] [facility] C [id number] 22:09:00* Test Item Value Reference Range Interpretation Comments Hepatitis C Ab (test code = 46667-0) NON-REACTIVE NON-REACTIVE Signal/cutoff (test code = 73300-5) 0.01 <1.00 HCV antibody was non-reactive. There is no laboratory evidence of HCV infection. In most cases, no further action is required. However,if recent HCV exposure is suspected, a test for HCV RNA(test code 64395) is suggested. For additional information please refer tohttp://education.[employer]/faq/IMJ09b0(This link is being provided for informational/educational purposes only.) RAC (test code = RAC) Performing Organization Info rmation: Site ID: [place] Name: [facility] Address: [address] [place] [phone] Director: Girish Hernandez [place] [facility] 1/2 ANTIGEN/ANTIBODY, FOURTH GENERATION [id number] 22:09:00* Test Item Value Reference Range Interpretation Comments HIV AG/AB 4th gen (test code = 00726-2) NON-REACTIVE NON-REACTIVE HIV-1 antigen and HIV-1/HIV-2 antibodies were notdetected. There is no laboratory evidence of HIVinfection. PLEASE NOTE: This information has been disclosed toyou from records whose confidentiality may beprotected by state law. If your state requires suchprotection, then the state law prohibits you frommaking any further disclosure of the informationwithout the specific written consent of the persont o whom it pertains, or as otherwise permitted by law.A general authorization for the release of medical orother information is NOT sufficient for this purpose. For additional information please refer t ohttp://education.[employer]/faq/FFA435(This link is being provided for informational/educational purposes only.) The performance of this assay has not been clinicallyvalidated in patients less than 2 years old. EMMA (test code = EMMA) Performing Organization Info rmation: Site ID: RGA Name: [facility] Address: [address] [place] [phone] Director: Girish Arce MethodrandalCHLAMYDIA/N. GONORRHOEAE RNA, [id number] 14:43:00* Test Item Value Reference Range Interpretation Comments Chlamydia trachomatis RNA, TMA (test code = 89562-9) NOT DETECTE D NOT DETECTED Neisseria gonorrhoeae RNA, TMA (test code = 99625-0) NOT DETECTE D NOT DETECTED (Always message) (test code = 2647) The analytical performance characteristics of thisassay, when used to test SurePath(TM) specimens have beendetermined by [facility]. The modifications havenot been cleared or approved by the FDA. This assay hasbeen validated pursuant to the CLIA regulations and isused for clinical purposes. For additional information, please refer tohttps://education.[employer]/faq/OWB173(This link is being provided for information/educational purposes only.) EMMA (test code = EMMA) Performing Organization Info rmation: Site ID: RGA Name: [facility] Address: [address] [place] [phone] Director: Girish Hernandez [facility] urinalysis [id number] 12:12:00* Test Item Value Reference Range Interpretation Comments Color urine, POC (test code = 2415793) Yellow Clarity urine, POC (test code = 6874581) Clear Glucose urine, POC (test code = 1958535) 3+ Negative A Bilirubin urine, POC (test code = 6468866) Negative Negative Ketones urine, POC (test code = 3569517) Negative Negative Specific gravity urine, POC (test code = 2732041) 1.020 1.00 5-1.030 Blood urine, POC (test code = 6036325) Trace Negative A pH urine, POC (test code = 1488831) 5.5 5.0, 5.5, 6. 0, 6.5, 7.0, 7.5, 8.0, 8.5 Protein urine, POC (test code = 2272327) Negative Negative Urobilinogen urine, POC (test code = 7146599) <2.0 <2.0 Nitrite urine, POC (test code = 5208403) Negative Negative Leukocyte esterase urine, POC (test code = 8858171) Negative Ne gative Lab Interpretation (test code = 79202-7) Abnormal [place] [facility] [id number] 21:41:00* Test Item Value Reference Range Interpretation Comments Urine culture (test code = 630-4) SEE NOTE CULTURE, URINE, ROUTINE Micro Number: [id number] Test Status: Final Specimen Source: URINE Specimen Quality: Adequate Result: No Growth RAC (test code = RAC) Performing Organization Info rmation: Site ID: RGA Name: [facility] Address: [address] [place] [phone] Director: Girish Hernandez [facility] specific [id number] 06:17:00* Test Item Value Reference Range Interpretation Comments PSA (test code = 2857-1) 1.0 ng/mL < OR = 4.0 The total PSA value from this assay system is standardized against the WHO standard. The test result will be approximately 20% lower when compared to the equimolar-standardized total PSA (Noel Sidney). Comparison of serial PSA results should be interpreted with this fact in mind. This test was performed using the Siemens chemiluminescent method. Values obtained from different assay methods cannot be usedinterchangeably. PSA levels, regardless ofvalue, should not be interpreted as absoluteevidence of the presence or absence of disease. EMMA (test code = RAC) Performing Organization Info rmation: Site ID: RGA Name: [facility] Address: [address] [place] [phone] Director: Girish Rasmussen
[2019-10-11] MEDS ORDERED: ASPIRIN 81 MG CHEW TAB PO ONE (10:15)
[2019-10-11] MEDS ORDERED: SODIUM CHLORIDE FLUSH 10 ML SYR INJ PRN (10:15)
[2019-10-11] MEDS ORDERED: ONDANSETRON HCL INJ 2MG/ML 2ML 2 MG/ML VIAL IV PRN (10:15)
--- OUTSIDE RECORDS SUMMARY | 2019-10-11 10:26 | XMS REPORT | Continuity of Care Document ---
Author Author [facility] t Organization [facility] Address [address] [place] [address] Phone Unavailable Care Team Providers Care Company Marker Name Role Phone Alvarenga DO, Bailey Tram [...] 00:00:00 Claude Rasmussen Coronary artery disease involving [place] coronary artery of [place] heart without angina pectoris Coronary artery disease involving [place] coronary artery of [place] heart without angina pectoris Disease Active 2017-08-17 [...] Date Stop Date Source Natural father Gout [facility] Natural mother Diabetes [facility] Natural mother Hypertension Claude Rasmussen Social History Social Habit Start Date Stop Date Quantity Comments Source History of tobacco use Cigarette Smoker Claude Rasmussen Sex Assigned At [facility] Exposure to SARS-CoV-2 (event) Not sure Claude [...] 2018-10-20 15:38 :36 2018-10-20 00:00:00 No 100mg [id number] Take 100 mg by mouth 3 (three) times a day as needed for cough. Claude Rasmussne atorvastatin (LIPITOR) 20 MG tablet 2018-08-10 00:00:0 [...] BY MOUTH ONCE A DAY. [facility] Immunizations Ordered Immunization Name Filled Immunization Name Date Status Comments Source Tdap 2014-08-02 00:00:00 Completed [facility] Vital Signs Vital Name Observation Time Observation Value Comments Source Systolic blood pressure 2019-09-13 15:40:00 119 mm[Hg] Claude Rasmussen Diastolic blood pressure 2019-09-13 15:40:00 71 mm[Hg] Claude Rasmussen Heart rate 2019-09-13 15:40:00 65 /min Claude Rasmussen Body temperature 2019-09-13 15:40:00 36.78 Indu [place] [facility] Body height 2019-09-13 15:40:00 167.6 cm Claude [...] GENERATION W/RFL 2019-06-24 10:18:00 Alvarenga, Angie Arce [facility] HEPATITIS C ANTIBODY 2019-06-24 10:18:00 Alvarenga, Angie mayo [facility] HEPATITIS B SURFACE ANTIGEN 2019-06-24 10:18:00 Alvarenga, Angie Arce [facility] URINALYSIS, AUTOMATED WITH MICROSCOPY 2019-06-24 10:18:00 Alvarenga, Angie Rasmussen MICROALBUMIN / CREATININE URINE RATIO 2019-06-24 10:18:00 Alvarenga, Angie Lazaroist HEMOGLOBIN A1C 2019-06-24 10:18:00 Alvarenga, Angie Arce [facility] LIPID PANEL 2019-06-24 10:18:00 AlvarengaAngie Met [facility]ist COMPREHENSIVE METABOLIC PANEL 2019-06-24 10:18:00 AlvarengaAngie [facility] CBC WITH PLATELET AND DIFFERENTIAL 2019-06-24 10:18:00 AlvarengaTimoteo [facility] CHLAMYDIA/N. GONORRHOEAE RNA, TMA 2019-06-24 10:18:00 Alvarenga Angie [facility]ce [facility] POC URINALYSIS DIPSTICK 2019-03-04 12:12:00 Alvarenga Angie Bailey Krista Rasmussen URINE CULTURE 2019-02-10 09:38:00 AlvarengaAngie [facility] COMPREHENSIVE METABOLIC PANEL 2019-02-10 09:38:00 Alvarenga Angie Arce [facility] LIPID PANEL 2019-02-10 09:38:00 AlvarengaAngie [facility] URINALYSIS, AUTOMATED WITH MICROSCOPY 2019-02-10 09:38:00 Mai Angie Arce [facility] HEMOGLOBIN A1C 2019-02-10 09:38:00 AlvarengaAngie [facility] US ABDOMINAL LIMITED 2018-10-26 08:02:41 Alvarenga Angie Vazquez maria esther Rasmussen COMPREHENSIVE METABOLIC PANEL 2018-10-20 16:28:00 AlvarengaAngie Claude Rasmussen LIPID PANEL 2018-10-20 16:28:00 AlvarengaAngie [facility] TSH REFLEX TO T4F 2018-10-20 16:28:00 Mai Angie Arce M [facility] PROSTATE SPECIFIC ANTIGEN 2018-10-20 16:28:00 Mai Angie Bailey Renzo [facility] HEMOGLOBIN A1C 2018-10-20 16:28:00 AlvarengaAngie [facility] [...] End Date/Time Encounter Type Admission Type [facility] Care Department Encounter ID Source 2019-10-05 00:00:00 2019-10-05 00:00:00 Outpatient ALVARENGA, TRAM HM [facility] [id number] [facility] 2019-10-05 00:00:00 2019-10-05 00:00:00 Outpatient ALVARENGA, TRAM HM H [facility] [id number] [facility] 2019-09-16 00:00:00 2019-09-16 00:00:00 Outpatient ALVARENGA, TRAM HM H [facility] [id number] [facility] 2019-09-13 00:00:00 2019-09-13 00:00:00 Outpatient ALVARENGA, TRAM HM H [facility] [id number] Arce [facility] 2019-08-30 00:00:00 2019-08-30 00:00:00 Outpatient ALVARENGA, TRAM HM H [facility] [id number] Arce [facility] 2019-06-24 00:00:00 2019-06-24 00:00:00 Outpatient ALVARENGA, TRAM HM H HM [id number] [facility] 2019-06-07 00:00:00 2019-06-07 00:00:00 Outpatient ALVARENGA, TRAM HM H [facility] [id number] [facility] Results Test Description Test Time Test Comments Results Result Comments Source CXR 2 VIEW - HOPD 2019-10-11 09:13:00 [place] [address] Patient Name: NORRIS ARCINIEGA MR #: [id number] : 1970 Age/Sex: 49/M Req #: [id number] Adm Physician: Ordered by: PASCALE FRANCOIS MD Report #: [id number] Location: [facility] Room/Bed: Procedure: [id number] HOPD/CXR 2 VIEW - HOPD Exam Date: [...] Organization Info rmation: Site ID: RGA Name: [facility] Address: [address] [place] [phone] Director: Girish Heranndez [facility] [id number] 08:02:00* Test Item Value Reference Range Interpretation Comments Glucose (test code = 2345-7) 98 mg/dL 65-99 Fasting reference interval BUN (test code = 3094-0) 12 mg/dL 7-25 Creatinine (test code = 2160-0) 0.80 mg/dL 0.6-1.35 EGFR Non-Afr. Malaysian (test code = 2775) 106 > OR = 60 mL /min/1.73m2 EGFR (test code = 73094-6) 122 > OR = 60 mL/min/1.73m2 BUN/creatinine ratio (test code = 3097-3) NOT APPLICABLE 6- 22 (alea c) Sodium (test code = 2951-2) 138 mmol/L 135-146 Potassium (test code = 2823-3) 4.6 mmol/L 3.5-5.3 Chloride (test code = 2075-0) 103 mmol/L 98-110 CO2 (test code = 2027-9) 24 mmol/L 20-32 Calcium (test code = 22835-1) 8.8 mg/dL 8.6-10.3 Protein (test code = 2885-2) 7.0 g/dL 6.1-8.1 Albumin, S (test code = 1751-7) 4.2 g/dL 3.6-5.1 Globulin, total (test code = 31201-6) 2.8 1.9- 3.7 g/dL (c alc) Albumin/globulin [...] Organization Info rmation: Site ID: RGA Name: [facility] Address: [address] [place] [phone] Director: Girish Hernandez [facility] MethodistLipid [id number] 08:02:00* Test Item Value Reference Range Interpretation Comments Cholesterol, total (test code = 2093-3) 134 mg/dL <200 HDL cholesterol (test code = 2085-9) 45 mg/dL > OR = 40 Triglycerides (test code = 2571-8) 124 mg/dL <150 LDL cholesterol calculated (test code = 30672-3) 68 mg/dL (calc) Reference range: <100 Desirable range <100 mg/dL for primary prevention; <70 mg/dL for patients with CHD or diabetic patients with > or = 2 CHD risk factors. LDL-C is now calculated using the William-Mary calculation, which is a validated novel method providing better accuracy than the Friedewald equation in the estimation of LDL-C. William SS et al. SHERRY. 2013;310(19): 2566-1365 (http:/ /education.hint/faq/AIT850) Cholesterol/HDL ratio (test code = 9830-1) 3.0 <5.0 (calc) Non-HDL cholesterol (test code = 28594-6) 89 <130 mg/dL ( calc) For patients with diabetes plus 1 major ASCVD risk factor, treating to a non-HDL-C goal of <100 mg/dL (LDL-C of <70 mg/dL) is considered a therapeutic option. RAC (test code = RAC) Performing Organization Info rmation: Site ID: RGA Name: [facility] [place] Address: [address] [place] [phone] Director: Girish Hernandez [facility] MethodistHemoglobin [id number] 08:02:00* Test Item Value Reference Range Interpretation Comments Hemoglobin A1C (test code = 4548-4) 6.5 <5.7 % of total Hg b H For someone without known diabetes, a hemoglobin U3poawgf of 6.5% or greater indicates that they [...] Organization Info rmation: Site ID: RGA Name: [facility] [place] [facility] Address: [address] [place] [address] Director: Girish Hernandez Lab Interpretation (test code = 01673-9) Abnormal [facility] MethodistTSH reflex to [id number] 08:02:00* Test Item Value Reference Range Interpretation Comments TSH reflex to FT4 (test code = 3016-3) 1.74 0.40- 4.50 mIU/ L RAC (test code = RAC) Performing Organization Info rmation: Site ID: RGA Name: [facility] Address: [address] [place] [address] Director: Girish Arce MethodistECG 12 [id number] 11:40:26* Test Item Value Reference Range Interpretation Comments Ventricular rate (test code = 253) 50 Atrial rate (test code = 255) 50 HI interval (test code = 266) 130 QRSD [...] T wave abnormality-Abnormal ECG-No previous ECGs available- [facility] MethodistUrinalysis, automated with [id number] 22:09:00* Test Item Value Reference Range Interpretation Comments Color, UA (test code = 5778-6) YELLOW YELLOW Appearance (test code = 5767-9) CLEAR CLEAR Specific gravity, urine (test code = 5811-5) 1.025 1.001-1.0 35 pH, urine (test code = 5803-2) < OR = 5.0 5.0-8.0 Glucose, urine (test code = 76141-7) 3+ NEGATIVE A Bilirubin, UA (test code = 5770-3) NEGATIVE NEGATIVE Ketones, UA (test code = 2514-8) NEGATIVE NEGATIVE Occult blood, urine (test code = 5794-3) NEGATIVE NEGATIVE Protein, UA (test code = 25710-5) NEGATIVE NEGATIVE Nitrite, UA (test code = 5802-4) NEGATIVE NEGATIVE Leukocyte esterase, UA (test code = 5799-2) NEGATIVE NEGATIVE WBC, UA (test code = 5821-4) NONE SEEN < OR = 5 /HPF RBC, UA (test code = 24740-1) NONE SEEN < OR = 2 /HPF Squamous epithelial cells, UA (test code = 84317-8) NONE SEEN < OR = 5 /HPF Bacteria, UA (test code = 5769-5) NONE SEEN NONE SEEN /HPF Hyaline casts, UA (test code = 5796-8) NONE SEEN NONE SEEN /LPF RAC (test code = RAC) Performing Organization Info rmation: Site ID: RGA Name: [facility] [place] [facility] Address: [address] [place] [phone] Director: Girish Hernandez Lab Interpretation (test code = 84903-0) Abnormal [facility] MethodistHepatitis B surface [id number] 22:09:00* Test Item Value Reference Range Interpretation Comments Hepatitis B surface Ag (test code = 5196-1) NON-REACTIVE NON-REACTI VE RAC (test code = RAC) Performing Organization Info rmation: Site ID: RGA Name: [facility] [place] [facility] Address: [address] [place] [phone] Director: Girish Henrandez [facility] MethodistRPR [id number] 22:09:00* Test Item Value Reference Range Interpretation Comments RPR (monitor) w/refl titer (test code = 93944-0) NON-REACTIVE NON-R EACTIVE RAC (test code = RAC) Performing Organization Info rmation: Site ID: [place] Name: [facility] [place] Address: [address] [place] [phone] Director: Girish Hernandez [facility]ismMicroalbumin / creatinine urine [id number] 22:09:00* Test Item Value Reference Range Interpretation Comments Creatinine, urine, random (test code = 2161-8) 72 mg/dL 20-320 Microalbumin, urine (test code = 77967-5) 1.0 mg/dL See Note: Reference Range:Reference RangeNot [...] Organization Info rmation: Site ID: [place] Name: [facility] [place] [facility] Address: [address] [place] [phone] Director: Girish Hernandez [facility] AdventismHepatitis C [id number] 22:09:00* Test Item Value Reference Range Interpretation Comments Hepatitis C Ab (test code = 08070-3) NON-REACTIVE NON-REACTIVE Signal/cutoff (test code = 59062-3) 0.01 <1.00 HCV antibody was non-reactive. There is no laboratory evidence of HCV infection. In most cases, no further action is required. However,if recent HCV exposure is suspected, a test for HCV RNA(test code 84191) is suggested. For additional information please refer tohttp://education.[employer]/faq/TAG00g7(This link is being provided for informational/educational purposes only.) RAC (test code = RAC) Performing Organization Info rmation: Site ID: [place] Name: [facility] [place] Address: [address] [place] [phone] Director: Girish Hernandez Chem[facility] MethodistHIV 1/2 ANTIGEN/ANTIBODY, FOURTH GENERATION [id number] 22:09:00* Test Item Value Reference Range Interpretation Comments HIV AG/AB 4th gen (test code = 68575-9) NON-REACTIVE NON-REACTIVE HIV-1 antigen and HIV-1/HIV-2 antibodies [...] purpose. For additional information please refer t ohttp://education.[employer]/faq/PMJ826(This link is being provided for informational/educational purposes only.) The performance of this assay has not been clinicallyvalidated in patients less than 2 years old. EMMA (test code = EMMA) Performing Organization Info rmation: Site ID: RGA Name: [facility] [place] [facility] Address: [address] [place] [phone] Director: Girish Arce MethodrandalCHLAMYDIA/N. GONORRHOEAE RNA, [id number] 14:43:00* Test Item Value Reference Range Interpretation Comments Chlamydia trachomatis RNA, TMA (test code = 57852-3) NOT DETECTE D NOT DETECTED Neisseria gonorrhoeae RNA, TMA (test code = 69421-2) NOT DETECTE D NOT DETECTED (Always message) (test code = 2647) The analytical performance characteristics of thisassay, when used to test SurePath(TM) specimens have beendetermined by [facility]. The modifications havenot been cleared or approved by the FDA. This assay hasbeen validated pursuant to the CLIA regulations and isused for clinical purposes. For additional information, please refer tohttps://education.[employer]/faq/LPX540(This link is being provided for information/educational purposes only.) EMMA (test code = EMMA) Performing Organization Info rmation: Site ID: RGA Name: [facility] [place] [facility] Address: [address] [place] [phone] Director: Girish Hernandez [facility] urinalysis [id number] 12:12:00* Test Item Value Reference Range Interpretation Comments Color urine, POC (test code = 3750374) Yellow Clarity urine, POC (test code = 1418202) Clear Glucose urine, POC (test code = 1009092) 3+ Negative A Bilirubin urine, POC (test code = 3540298) Negative Negative Ketones urine, POC (test code = 4641183) Negative Negative Specific gravity urine, POC (test code = 9065050) 1.020 1.00 5-1.030 Blood urine, POC (test code = 5067545) Trace Negative A pH urine, POC (test code = 0005778) 5.5 5.0, 5.5, 6. 0, 6.5, 7.0, 7.5, 8.0, 8.5 Protein urine, POC (test code = 2625775) Negative Negative Urobilinogen urine, POC (test code = 4608710) <2.0 <2.0 Nitrite urine, POC (test code = 5633809) Negative Negative Leukocyte esterase urine, POC (test code = 5705459) Negative Ne gative Lab Interpretation (test code = 33554-6) Abnormal [facility] MethodistUrine [id number] 21:41:00* Test Item Value Reference Range Interpretation Comments Urine culture (test code = 630-4) SEE NOTE CULTURE, URINE, ROUTINE Micro Number: [id number] Test Status: Final Specimen Source: URINE Specimen Quality: Adequate Result: No Growth RAC (test code = RAC) Performing Organization Info rmation: Site ID: RGA Name: [facility] [place] [facility] Address: [address] [place] [phone] Director: Girish Hernandez [facility]ressProstate specific [id number] 06:17:00* Test Item Value Reference Range Interpretation Comments PSA (test code = 2857-1) 1.0 ng/mL < OR = 4.0 The total PSA value from this assay system is standardized against the WHO standard. The test result will be approximately 20% lower when compared to the equimolar-standardized total PSA (Noel Hurst). Comparison of serial PSA results should be interpreted with this fact in mind. This test was performed using the Siemens chemiluminescent method. Values obtained from different assay methods cannot be usedinterchangeably. PSA levels, regardless ofvalue, should not be interpreted as absoluteevidence of the presence or absence of disease. EMMA (test code = RAC) Performing Organization Info rmation: Site ID: RGA Name: [facility] Address: [address] [place] [phone] Director: Girish Rasmussen
--- OUTSIDE RECORDS SUMMARY | 2019-10-11 10:26 | XMS REPORT | Clinical Summary ---
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 use of insulin ([facility]) 03/03/2020 Active empagliflozin 25 mg Take 1 tablet 90 tablet 1 02/23 tabletIndications: Type 2 (25 mg total) 0 diabetes mellitus without by mouth complication, without daily. long-term current use of insulin ([facility]) Active atorvastatin (LIPITOR) 20 TAKE ONE (1) 90 tablet 0 mg tabletIndications: TABLET(S) BY 0 Coronary artery disease MOUTH DAILY. involving [place] coronary artery of [place] heart without angina pectoris, Hypercholesteremia Active traZODone [...] Coronary artery disease MOUTH ONCE A involving [place] coronary DAY. artery of [place] heart without angina pectoris, Hypercholesteremia 03/04/2019 Discontinued (Reorder) atorvastatin (LIPITOR) 20 TAKE ONE (1) 90 tablet 0 MG tabletIndications: TABLET(S) BY 9 Coronary artery disease MOUTH ONCE A involving [place] coronary DAY. artery of [place] heart without angina pectoris, Hypercholesteremia 06/07/2019 Discontinued (Reorder) nystatin-triamcinolone Apply 30 g 0 (MYCOLOG) 100,000-0.1 topically 2 0 unit/gram-% (two) times a ointmentIndications: day. Penile lesion 08/28/2019 Discontinued atorvastatin (LIPITOR) 20 Take 1 tablet 90 tablet 1 MG tabletIndications: (20 mg total) 0 Coronary artery disease by mouth involving [place] coronary daily. artery of [place] heart Default OP without angina pectoris, ins [...] 08/17/2017 Anxiety 08/17/2017 Coronary artery disease involving [place] coronary art sarwat of [place] heart 08/17/2017 without angina pectoris IBS (irritable [...] thigh; Sleep disturbances; Coronary artery disease involving [place] coronary artery of [place] heart without angina pectoris; Benign essential hypertension 08/30/2019 Office Visit Family Medicine 08/30/2019 Travel Oneill, Tram Bailey, DO Coronary artery disease involving [place] coronary artery of [place] heart without angina pectoris; Hypercholesteremia 08/28/2019 Refill Family Medicine 08/25/2019 Travel Oneill, Tram Bailey, DO 07/27/2019 Telephone Family Medicine 07/27/2019 Travel Oneill, Tram Bailey, DO Penile lesion; Benign essential hypertension; Coronary artery disease involving [place] coronary artery of [place] heart without angina pectoris; Type 2 diabetes mellitus without complication, without long-term current use of insulin (HCC); Hypercholesteremia 06/24/2019 Lab Lab 06/24/2019 Travel Oneill, Tram Bailey, DO 06/20/2019 Telephone Internal Medicine Angie Oneill DO Benign essential hypertension (Primary D x); Coronary artery disease involving [place] coronary artery of [place] heart without angina pectoris; Type 2 diabetes mellitus without complication, without long-term current use of insulin (HCC); Hypercholesteremia; Penile lesion; Acute pain of left thigh 06/07/2019 Telemedicine [facility] Medicine 06/06/2019 Travel Angie Oneill DO Type 2 diabetes mellitus without complic ation, without long-term current use of insulin (EDMAR) (Primary Dx); Dysuria; Penile lesion; Anxiety; Coronary artery disease involving [place] coronary artery of [place] heart without angina pectoris; Hypercholesteremia 03/04/2019 Office Visit [facility] Angie Oneill DO 03/01/2019 Telephone Internal Medicine Angie Oneill DO Anxiety; Hypercholesteremia; Type 2 diabetes mellitus without complication, without long-term current use of insulin (HCC); Benign essential hypertension 02/10/2019 Lab Lab Angie Oneill DO Type 2 diabetes mellitus without complic ation, without long-term current use of insulin (HCC) (Primary Dx); Anxiety; Hypercholesteremia; Benign essential hypertension; Urinary frequency; Coronary artery disease involving [place] coronary artery of [place] heart without angina pectoris 02/10/2019 Office Visit [facility] Angie Oneill DO Coronary artery disease involving [place] coronary artery of [place] heart without angina pectoris; Hypercholesteremia 11/05/2018 Refill [facility] Angie Oneill DO Type 2 diabetes mellitus without complic ation, without long-term current use of insulin (HCC) (Primary Dx); Umbilical hernia without obstruction and without gangrene 10/26/2018 Office Visit [facility] Angie Oneill DO Urinary frequency; Left lower quadrant pain; Benign essential hypertension; Hypercholesteremia; Type 2 diabetes mellitus without complication, without long-term current use of insulin (HCC) 10/20/2018 Lab Lab Angie Oneill DO Urinary frequency (Primary Dx); Left lower quadrant pain; Benign essential hypertension; Hypercholesteremia; Umbilical hernia without obstruction and without gangrene; Coronary artery disease involving [place] coronary artery of [place] heart without angina pectoris; Type 2 diabetes [...] Description Date Type Specialty Papa Oneil MD [address] [address] 10/21/2019 Telemedicine Cardiology Health Maintenance [...] AM CDT hypertension Coronary artery disease involving [place] coronary artery of [place] heart without angina pectoris Type 2 diabetes mellitus without complication, without long-term current use of insulin (HCC) Hypercholesteremia COMPREHENSIVE METABOLIC Routine 06/24/2019 Benign essential PANEL 10:18 AM CDT hypertension Coronary artery disease involving [place] coronary artery of [place] heart without angina pectoris Type 2 diabetes mellitus without complication, without long-term current use of insulin (HCC) Hypercholesteremia LIPID PANEL Routine 06/24/2019 Benign essentia l 10:18 AM CDT hypertension Coronary artery disease involving [place] coronary artery of [place] heart without angina pectoris Type 2 diabetes mellitus without complication, without long-term current use of insulin (HCC) Hypercholesteremia HEMOGLOBIN A1C Routine 06/24/2019 Benign essentia l 10:18 AM CDT hypertension Coronary artery disease involving [place] coronary artery of [place] heart without angina pectoris Type 2 diabetes mellitus without complication, without long-term current use of insulin (HCC) Hypercholesteremia MICROALBUMIN / CREATININE Routine 06/24/2019 Eamon gn essential URINE RATIO 10:18 AM CDT hypertension Coronary artery disease involving [place] coronary artery of [place] heart without angina pectoris Type 2 diabetes mellitus without complication, without long-term current use of insulin (HCC) Hypercholesteremia URINALYSIS, AUTOMATED Routine 06/24/2019 Benign e ssential WITH MICROSCOPY 10:18 AM CDT hypertension Coronary artery disease involving [place] coronary artery of [place] heart without angina pectoris Type 2 diabetes [...] DIPSTICK Routine 03/04/2019 Dysuri a 12:12 PM PRIVATE SECRETARY HEMOGLOBIN A1C Routine 02/10/2019 Anxiety 9:38 AM PRIVATE SECRETARY Hypercholesteremia Type 2 diabetes mellitus without complication, without long-term current use of insulin (HCC) Benign essential hypertension URINALYSIS, AUTOMATED Routine 02/10/2019 Anxiety WITH MICROSCOPY 9:38 AM PRIVATE SECRETARY Hypercholesteremia Type 2 diabetes mellitus without complication, without long-term current use of insulin (HCC) Benign essential hypertension LIPID PANEL Routine 02/10/2019 Anxiety 9:38 AM PRIVATE SECRETARY Hypercholesteremia Type 2 diabetes mellitus without complication, without long-term current use of insulin (HCC) Benign essential hypertension COMPREHENSIVE METABOLIC Routine 02/10/2019 Anxiet y PANEL 9:38 AM PRIVATE SECRETARY Hypercholesteremia Type 2 diabetes mellitus without complication, without long-term current use of insulin (HCC) Benign essential hypertension URINE CULTURE Routine 02/10/2019 Anxiety 9:38 AM PRIVATE SECRETARY Hypercholesteremia Type 2 diabetes mellitus without complication, [...] 10.0 3.8 - 10.8 [facility] Thousand/uL DI[facility] [place] RBC 4.81 4.20 - 5.80 [facility] Million/uL [facility] [place] HGB 14.8 13.2 - 17.1 g/dL [facility] [place] HCT 44.6 38.5 - 50.0 % [place] MCV 92.7 80.0 - 100.0 fL [place] MCH 30.8 27.0 - 33.0 pg [place] MCHC 33.2 32.0 - 36.0 g/dL [place] RDW 13.1 11.0 - 15.0 % [place] Platelet count 292 140 - 400 [facility] Thousand/uL [facility] [place] MPV 9.7 7.5 - 12.5 fL [place] Neutrophils, 6,890 1,500 - 7,800 [facility] absolute cells/uL [facility] [place] Lymphocytes, 2,260 850 - 3,900 cells/uL [facility] absolute [facility] [place] Monocytes, 550 200 - 950 cells/uL [facility] absolute [facility] [place] Eosinophils, 240 15 - 500 cells/uL [facility] absolute [facility] [place] Basophils, 60 0 - 200 cells/uL [facility] absolute [facility] [place] Neutrophils 68.9 % [place] Lymphocytes 22.6 % [place] Monocytes 5.5 % [place] Eosinophils 2.4 % [place] Basophils + RC 0.6 % [place] Specimen Blood Resulting Agency Comment Performing Organization Information: Site ID: [id number] Name: [facility] Address: [address] [place] [phone] Director: Girish Hernandez Performing Organization Address City/State/Zipcode Ph one Number simfy [address] [address] * MRA Head Wo [...] IMPRESSION: 1. Normal MRA Performing Organization Address [facility] Ph one Number RADIANT [address] [place] [address] * TSH reflex to T4 (09/16/2019 10:17 AM CDT) Only the most recent of 2 results within the time period is included. TSH reflex to 1.74 0.40 - 4.50 mIU/L [employer] FT4 [facility] [place] Specimen Blood Resulting Agency Comment Performing Organization Information: Site ID: A Name: [facility] Address: [address] [place] [phone] Director: Girish Hernandez Performing Organization Address [facility] one Number simfy [address] [address] * Hemoglobin A1c (09/16/2019 [...] Performing Organization Information: Site ID: RGA Name: [facility] Address: [address] [place] [phone] Director: Girish Hernandez Performing Organization Address [facility] one Number [facility] [place] [phone] * Lipid panel (09/16/2019 10:17 AM CDT) Only the most recent of 4 results within the time period is included. [facility] Cholesterol, 134 <200 mg/dL [facility] total [facility] [place] HDL cholesterol 45 > OR = 40 mg/dL [facility] [place] Triglycerides 124 <150 mg/dL [facility] [place] LDL cholesterol 68 mg/dL (calc) [facility] calculated Comment: DIAGNOSTICS Reference range: <100 [place] Desirable range <100 mg/dL for primary prevention; <70 mg/dL for patients with CHD or diabetic patients with > or = 2 CHD risk factors. LDL-C is now calculated using the Bossman calculation, which is a validated novel method providing better accuracy than the Friedewald equation in the estimation of LDL-C. William MAYFIELD et al. SHERRY. 2013;310(19): 1929-8630 (http://education.HowStuffWorks/faq/EQB293) Cholesterol/HDL 3.0 <5.0 (calc) [facility] ratio [facility] [place] Non-HDL 89 <130 mg/dL (calc) [facility] cholesterol Comment: DIAGNOSTICS For patients with diabetes [place] plus 1 major ASCVD risk factor, treating to a non-HDL-C goal of <100 mg/dL (LDL-C of <70 mg/dL) is considered a therapeutic option. Specimen Blood Resulting Agency Comment Performing Organization Information: Site ID: RGA Name: [facility] Address: [address] [place] [phone] Director: Girish Hernandez Performing Organization Address City/[facility] one Number simfy [place] [phone] * Comprehensive metabolic panel (09/16/2019 10:17 AM CDT) Only the most recent of 4 results within the time period is included. [facility] Glucose 98 65 - 99 mg/dL [facility] Comment: DIAGNOSTICS Fasting [place] reference interval BUN 12 7 - 25 mg/dL [facility] [place] Creatinine 0.80 0.60 - 1.35 mg/dL [facility] [place] EGFR Non-Afr. 106 > OR = 60 [facility] Venezuelan mL/min/1.73m2 [facility] EGFR 122 > OR = 60 [facility] Venezuelan mL/min/1.73m2 DIAGNOSTICS [place] BUN/creatinine NOT APPLICABLE 6 - 22 (calc) [facility] ratio [facility] [place] Sodium 138 135 - 146 mmol/L [facility] [place] Potassium 4.6 3.5 - 5.3 mmol/L [facility] [place] Chloride 103 98 - 110 mmol/L [facility] [place] CO2 24 20 - 32 mmol/L [facility] [place] Calcium 8.8 8.6 - 10.3 mg/dL [facility] [place] Protein 7.0 6.1 - 8.1 g/dL [facility] [place] Albumin, S 4.2 3.6 - 5.1 g/dL [facility] [place] Globulin, total 2.8 1.9 - 3.7 g/dL [facility] (calc) DI[facility]NOSTICS [place] Albumin/globuli 1.5 1.0 - 2.5 (calc) [facility] n ratio [facility] [place] Total bilirubin 0.5 0.2 - 1.2 mg/dL [facility] [place] Alkaline 102 36 - 130 U/L [facility] phosphatase [facility] [place] AST 27 10 - 40 U/L [facility] [place] ALT 23 9 - 46 U/L [facility] [place] Specimen Blood Resulting Agency Comment Performing Organization Information: Site ID: RGA Name: [facility] Address: [address] [place] [phone] Director: Girish Hernandez Performing Organization Address City/State/[facility] Ph one Number simfy [address] [address] * ECG 12 lead (08/29/2019 11:30 PM CDT) Ventricular 50 [facility] MUSE rate Atrial rate 50 [facility] MUSE [place] interval 130 [facility] MUSE QRSD interval 90 [...] is n ot available. Performing Organization Address City/State/[facility] Ph one Number [facility] MUSE [address] [place] [address] * CHLAMYDIA/N. GONORRHOEAE RNA, TMA (06/24/2019 10:18 AM CDT) Chlamydia NOT DETECTED NOT DETECTED [facility] trachomatis DIAGNOSTICS RNA, TMA [place] Neisseria NOT DETECTED NOT DETECTED [facility] gonorrhoeae DIAGNOSTICS RNA, TMA [place] (Always Comment: [facility] message) The analytical performance DIAGNOSTIC S characteristics of this MEHTA assay, when used to test SurePath(TM) specimens have been determined by [facility]. The modifications have not been cleared or approved by the FDA. This assay has been validated pursuant to the CLIA regulations and is used for clinical purposes. For additional information, please refer to https://education.Raiing.Dolor Technologies/faq/PLZ623 (This link is being provided for information/ educational purposes only.) Specimen Blood Resulting Agency Comment Performing Organization Information: Site ID: [id number] Name: [facility] Address: [address] [place] [phone] Director: Girish Hernandez Performing Organization Address City/State/Zipcode Ph one Number [facility] [place] [address] [address] * HIV 1/2 ANTIGEN/ANTIBODY, FOURTH GENERATION W/RFL (06/24/2019 10:18 AM CDT) HIV AG/AB 4th NON-REACTIVE NON-REACTIVE [facility] gen Comment: DIAGNOSTICS HIV-1 antigen and HIV-1/HIV-2 [place] antibodies were not detected. There is no [...] purpose. For additional information please refer to http://education.Reddit.Dolor Technologies/faq/JOT437 (This link is being provided for informational/ educational purposes only.) The performance of this assay has not been clinically validated in patients less than 2 years old. Specimen Blood Resulting Agency Comment Performing Organization Information: Site ID: RGA Name: [facility] Address: [address] [place] [phone] Director: Girish Hernandez Performing Organization Address [facility] one Number [facility] [place] [address] * Hepatitis C antibody (06/24/2019 10:18 AM CDT) Pathologist [facility] Hepatitis C Ab NON-REACTIVE NON-REACTIVE [facility] Signal/cutoff 0.01 <1.00 [facility] Comment: DIAGNOSTICS HCV antibody was non-reactive. [place] There is no laboratory evidence of HCV infection. In most cases, no further action is required. However, if recent HCV exposure is suspected, a test for HCV RNA (test code 12839) is suggested. For additional information please refer to http://education.Wirecom Technologies/faq/IQF63j0 (This link is being provided for informational/ educational purposes only.) Specimen Blood Resulting Agency Comment Performing Organization Information: Site ID: A Name: [facility] Address: [address] [place] [phone] Director: Girish Hernandez Performing Organization Address [facility] one Number simfy [place] [address] * Microalbumin / creatinine urine ratio (06/24/2019 10:18 AM CDT) Pathologist [facility] Creatinine, 72 20 - 320 mg/dL [facility] urine, random [facility] [place] Microalbumin, 1.0 See Note: mg/dL [facility] urine Comment: DIAGNOSTICS Reference Range: [place] Reference Range Not established Microalbumin/cr 14 <30 [...] Performing Organization Information: Site ID: RGA Name: [facility] Address: [address] [place] [phone] Director: Girish Hernandez Performing Organization Address [facility] one Number simfy [place] [phone] * RPR screen (06/24/2019 10:18 AM CDT) RPR (monitor) NON-REACTIVE NON-REACTIVE [facility] w/refl titer DIAGNOSTICS [place] Specimen Blood Resulting Agency Comment Performing Organization Information: Site ID: RGA Name: [facility] Address: [address] [place] [phone] Director: Girish Hernandez Performing Organization Address [facility] Ph one Number [facility] [place] [phone] * Hepatitis B surface antigen (06/24/2019 10:18 AM CDT) Pathologist [facility] Hepatitis B NON-REACTIVE NON-REACTIVE [facility] surface Ag [facility] [place] Specimen Blood Resulting Agency Comment Performing Organization Information: Site ID: RGA Name: [facility] Address: [address] [place] [phone] Director: Girish Hernandez Performing Organization Address [facility] Ph one Number [facility] [address] [address] * Urinalysis, automated with microscopy (06/24/2019 10:18 AM CDT) Only the most recent of 2 results within the time period is included. Color, UA YELLOW YELLOW [facility] [place] Appearance CLEAR CLEAR [facility] [place] Specific 1.025 1.001 - 1.035 [facility] gravity, urine DIAG[facility]STICS [place] pH, urine < OR = 5.0 5.0 - 8.0 [facility] [place] Glucose, urine 3+ (A) NEGATIVE [facility] [place] Bilirubin, UA NEGATIVE NEGATIVE [facility] [place] Ketones, UA NEGATIVE NEGATIVE [facility] [place] Occult blood, NEGATIVE NEGATIVE [facility] urine [facility] [place] Protein, UA NEGATIVE NEGATIVE [facility] [place] Nitrite, UA NEGATIVE NEGATIVE [facility] [place] Leukocyte NEGATIVE NEGATIVE [facility] esterase, UA DI[facility] [place] WBC, UA NONE SEEN < OR = 5 /HPF [facility] [place] RBC, UA NONE SEEN < OR = 2 /HPF [facility] [place] Squamous NONE SEEN < OR = 5 /HPF [facility] epithelial DIAGNOSTICS cells, UA [place] Bacteria, UA NONE SEEN NONE SEEN /HPF [facility] [place] Hyaline casts, NONE SEEN NONE SEEN /LPF [facility] UA [facility] [place] Specimen Blood Resulting Agency Comment Performing Organization Information: Site ID: RGA Name: [facility] Address: [address] [place] [phone] Director: Girish Hernandez Performing Organization Address [facility] one [facility] [place] [employer] [place] [address] * POC urinalysis dipstick (03/04/2019 12:12 PM PRIVATE SECRETARY) Only the most recent of 2 results [...] Urine * Urine culture (02/10/2019 9:38 AM PRIVATE SECRETARY) Urine culture SEE NOTE [facility] Comment: DIAGNOSTICS CULTURE, URINE, [facility] Micro Number: [id number] Test Status: Final Specimen Source: URINE Specimen Quality: Adequate Result: No Growth Specimen Urine Resulting Agency Comment Performing Organization Information: Site ID: [facility] Name: [facility] Address: [address] [place] [phone] Director: Girish Hernandez Performing Organization Address [facility] one [facility] [place] [employer] [place] [address] * US Abdominal Limited (10/26/2018 8:02 [...] to approximately 5 mm. Performing Organization Address [facility] one Number RAD[facility] [address] [place] [address] * Prostate specific antigen (10/20/2018 4:28 PM CDT) PSA 1.0 < OR = 4.0 ng/mL [facility] Comment: DIAGNOSTICS The total PSA value from this [place] assay system is standardized against the WHO standard. The test result will be approximately 20% lower when compared to the equimolar-standardized total PSA ([place]). Comparison of serial PSA results should be interpreted with this fact in mind. This test was performed using the Siemens chemiluminescent method. Values obtained from different assay methods cannot be used interchangeably. PSA levels, regardless of value, should not be interpreted as absolute evidence of the presence or absence of disease. Specimen Blood Resulting Agency Comment Performing Organization Information: Site ID: RGA Name: [facility] Address: [address] [place] [phone] Director: Girish Hernandez Performing Organization Address [facility] one Number simfy [address] [address] after 10/10/2018 Insurance Type Payer Benefit Subscriber ID Effective Phone Address Plan / Dates Group PPO BCBS BCBS xxxxxxxxxxxx [id number] CHOICE resent PPO/SAMUEL CLARKE PPO Advance Directives For more information, please contact: [phone] Patient Juvenile Officer Explanation Type Date Recorded Advance Directives, Living Will and Medical Power of Joint Finisher
--- NOTE | 2019-10-11 10:40 | NUR ---
[facility] NOTIFIED OF TRANSFER TO [facility], ETA GIVEN IS 30-45 MINUTES
--- NOTE | 2019-10-11 11:51 | NUR ---
PATIENT WAS A DIRECT ADMISSION FROM THE [facility]. PATIENT ARRIVED TO THE UNIT @ 1151 VIA STRETCHER X 2 EMS. PATIENT IS STABLE CONDITION, NO S/S OF DISTRESS NOTED. TELEMETRY APPLIED. IV SITE ASYMPTOTIC AND PATENT, TRANSPARENT DRESSING C/D/I. BED IN LOWEST POSITION AND LOCKED. CALL LIGHT WITHIN REACH
[2019-10-11] MEDS ORDERED: METFORMIN HCL500 MG PO (12:07)
[2019-10-11] MEDS ORDERED: JARDIANCE25 MG PO (12:07)
[2019-10-11] MEDS ORDERED: ATORVASTATIN CA20 MG PO (12:07)
[2019-10-11] MEDS ORDERED: BENICAR20 MG PO (12:07)
[2019-10-11] MEDS ORDERED: CARVEDILOL12.5 MG PO (12:07)
[2019-10-11] MEDS ORDERED: CLOPIDOGREL75 MG PO (12:07)
--- NOTE | 2019-10-11 12:34 | Consultation ---
DATE OF CONSULTATION: Cardiology Consultation REASON FOR CONSULTATION: Chest pain. HISTORY OF PRESENT ILLNESS: This is a 49-year-old man with history of prior myocardial infarction and coronary artery disease, status post percutaneous coronary intervention approximately 3 years ago and lost followup, hypertension, hyperlipidemia, and diabetes mellitus, who presented to the emergency department with back pain and pain in his upper chest and right arm. Again, the pain was radiating from the back into the chest, [id number] intensity at rest, nonexertional. No other exacerbating or relieving factors. Of note, he also reports "palpitations" in his head. He denies any typical palpitations or significant shortness of breath. REVIEW OF SYSTEMS: A 12-point review of system was conducted, is negative except as stated above in the HPI. PAST MEDICAL HISTORY: As stated above in the HPI. PAST SURGICAL HISTORY: Percutaneous intervention. PAST FAMILY HISTORY: Noncontributory to current illness. ALLERGIES: NO KNOWN DRUG ALLERGIES. MEDICATIONS: See medication reconciliation form. SOCIAL HISTORY: No illicit drug, alcohol, or tobacco use. PHYSICAL EXAMINATION: VITAL SIGNS: Temperature is 97.3, heart rate is 47, respirations are 18, blood pressure is 159/87, and oxygen saturation 99% on room air. GENERAL: Well appearing, well built, in no apparent distress. Alert and oriented x3. HEAD: Normocephalic and atraumatic. EYES: The extraocular muscles are intact. Conjunctivae clear. NECK: No JVD. No bruits. CARDIOVASCULAR: Regular rate and rhythm. LUNGS: Clear to auscultation. ABDOMEN: Soft, nontender, and nondistended. EXTREMITIES: No clubbing, cyanosis, or edema. VASCULAR: 2+ pulses. SKIN: Warm, dry, and intact. NEUROLOGIC: No focal deficits noted. Cranial nerves grossly intact. PSYCHIATRIC: Normal mood and affect. LABORATORY DATA: Reviewed. Troponins negative. A 12-lead electrocardiogram showed marked sinus bradycardia. IMPRESSION: 1. Precordial pain. 2. Bradycardia. 3. Hypertension. 4. Hyperlipidemia. 5. Diabetes mellitus. 6. Hypertension. 7. Obesity. 8. Coronary artery disease, status post percutaneous coronary intervention. RECOMMENDATIONS: We will continue to trend cardiac enzymes to rule out for myocardial infarction. Check a 2D echocardiogram and a stress test. Hold beta blockers at this time. Continue aspirin, clopidogrel, and atorvastatin. Diabetes mellitus management per primary team. DO RAMOS Quintana/PIPER /[id number]
[2019-10-11 12:45] VITALS: BP 153/94
[2019-10-11 13:02] VITALS: BP 153/94
[2019-10-11 13:09] VITALS: BP 149/86
[2019-10-11 15:07] LABS: CREATINE KINASE MB 1.3 ng/mL (0-5.0)
[2019-10-11 16:14] VITALS: BP 143/97
--- NOTE | 2019-10-11 19:29 | NUR ---
COMPLETED BEDSIDE REPORT AND ROUNDING WITH ONCOMING NIGHT NURSE. PATIENT IS STABLE CONDITION, NO S/S OF DISTRESS NOTED. TELEMETRY APPLIED READING- SR. IV SITE ASYMPTOTIC AND PATENT, TRANSPARENT DRESSING C/D/I. BED IN LOWEST POSITION AND LOCKED. CALL LIGHT WITHIN REACH
[2019-10-11 20:00] VITALS: BP 122/80
[2019-10-11] MEDS ORDERED: MORPHINE SULFATE 2 MG/ML SYR 1ML IV PRN (20:00)
[2019-10-11 21:00] VITALS: BP 122/80
[2019-10-11] MEDS ORDERED: HYDRALAZINE HCL 20 MG/ML VIAL IV PRN (21:30)
[2019-10-11] MEDS ORDERED: TEMAZEPAM 15 MG CAP PO PRN (21:30)
[2019-10-11] MEDS ORDERED: POLYETHYLENE GLYCOL 3350 17 GM PACK PO PRN (21:30)
[2019-10-11] MEDS ORDERED: ACETAMINOPHEN 325 MG TAB PO PRN (21:30)
[2019-10-11 23:24] LABS: CREATINE KINASE MB 1.2 ng/mL (0-5.0)
[2019-10-12] VITALS (7 sets, daily range): BP systolic 113–149; BP diastolic 77–82
[2019-10-12 04:50] LABS: BILIRUBIN,URINE NEGATIVE (NEGATIVE); CLARITY,URINE CLEAR (CLEAR); COLOR,URINE YELLOW (YELLOW); KETONES,URINE NEGATIVE (NEGATIVE); LEUKOCYTE ESTERASE ,URINE NEGATIVE (NEGATIVE); NITRITE,URINE NEGATIVE (NEGATIVE); PROTEIN,URINE DIPSTICK NEGATIVE (NEGATIVE); URINE UROBILINOGEN 0.2 mg/dL (0.2 - 1)
[2019-10-12 04:56] LABS: BACTERIA,URINE FEW /HPF; EPITHELIAL CELLS,URINE FEW /LPF; RBC,URINE 0-5 /HPF (0-5); WBC,URINE (MAN) 0-5 /HPF (0-5)
[2019-10-12] MEDS ORDERED: DEXTROSE 50% SYRINGE 50 ML IV PRN (07:00)
--- NOTE | 2019-10-12 07:00 | NUR ---
RECEIVED BEDSIDE REPORT FROM OFF GOING NIGHT NURSE. PATIENT IN STABLE CONDITION, NO S/S OF DISTRESS NOTED. NO PAIN VOICED. TELEMETRY APPLIED. IV SITE ASYMPTOMATIC AND PATENT, TRANSPARENT DRESSING C/D/I. BED IN LOWEST POSITION AND LOCKED, SIDE RAILS X 2. CALL LIGHT WITHIN REACH.
[2019-10-12 07:03] LABS: BASOPHILS % 0.5 % (0.0-1.0); EOSINOPHILS # (AUTO) 0.2 (0.0-0.4); EOSINOPHILS % 2.5 % (0.0-6.0); HEMOGLOBIN 15.9 g/dL (14.0-18.0); LYMPHOCYTES # (AUTO) 1.8 (1.0-3.2); LYMPHOCYTES % 21.4 % (18.0-39.1); MEAN CORPUSCULAR HEMOGLOBIN 30.9 pg (28-32); MEAN CORPUSCULAR HGB CONC 33.1 g/dL (31-35); MEAN CORPUSCULAR VOLUME 93.4 fL (81-99); MONOCYTES # (AUTO) 0.6 (0.2-0.8); MONOCYTES % 6.9 % (4.4-11.3); NEUTROPHILS # (AUTO) 5.7 (2.1-6.9); NEUTROPHILS % 67.6 % (38.7-80.0); PLATELET COUNT 252 x10e3/uL (140-360); RED BLOOD COUNT 5.14 x10e6/uL (4.3-5.7); RED CELL DISTRIBUTION WIDTH 13.2 % (11.7-14.4)
[2019-10-12] MEDS ORDERED: FAMOTIDINE20 MG PO (07:08)
[2019-10-12] MEDS: INSULIN LISPRO 100 UNIT/1 ML 3ML VIAL SQ SCH ×4 (07:30→20:34)
[2019-10-12] MEDS: FAMOTIDINE 20 MG TAB PO SCH ×2 (07:30→16:30)
[2019-10-12 07:52] LABS: CREATINE KINASE MB 0.4 ng/mL (0-5.0)
[2019-10-12 08:09] LABS: ALANINE AMINOTRANSFERASE 22 IU/L (0-55); ALBUMIN 3.7 g/dL (3.5-5.0); ALKALINE PHOSPHATASE 92 IU/L (40-150); ANION GAP 15.4 mmol/L (8-16); BLOOD UREA NITROGEN 13 mg/dL (7-26); BUN/CREATININE RATIO 16 (6-25); CARBON DIOXIDE 23 mmol/L (22-29); CHLORIDE 105 mmol/L (98-107); CHOL/HDL RATIO 3.4 (3.9-4.7); CHOLESTEROL 141 MD/DL (0-199); CREATININE, SERUM 0.83 mg/dL (0.72-1.25); EST GLOMERULAR FILTRATION RATE > 60 ML/MIN (60-); GLUCOSE 107 mg/dL (74-118); HDL CHOLESTEROL 41 MG/DL (40-60); LDL CHOLESTEROL 69 MG/DL (60-130); PHOSPHORUS 3.8 MG/DL (2.3-4.7); POTASSIUM 4.4 mmol/L (3.5-5.1); SODIUM 139 mmol/L (136-145); TRIGLYCERIDES 156 MG/DL (0-149)
[2019-10-12 08:29] LABS: THYROID STIMULATING HORMONE 1.939 uIU/mL (0.350-4.940)
[2019-10-12] MEDS: DOCUSATE SODIUM 100 MG CAP PO SCH ×2 (08:52→17:00)
[2019-10-12] MEDS: ASPIRIN 81 MG CHEW TAB PO SCH (09:00)
[2019-10-12] MEDS ORDERED: FAMOTIDINE 20 MG/2 ML VIAL IV SCH (09:00)
[2019-10-12] MEDS: ATORVASTATIN 20 MG TAB PO SCH (09:00)
--- NOTE | 2019-10-12 12:11 | NUR ---
Discontinuing PT services since patient is independent in functional mobility. Thank you Addendum: 10/12/19 at 1212 by Clifton avila PT Amended: Links added.
[2019-10-12] MEDS ORDERED: REGADENOSON 0.4 MG/5 ML SYR IV ONE (12:43)
--- NOTE | 2019-10-12 13:38 | NUR ---
PATIENT OFF THE UNIT @ 1305 FOR A STRESS TEST. PATIENT IN STABLE CONDITION.
--- NOTE | 2019-10-12 18:33 | NUR ---
PATIENT ARRIVE BACK TO THE UNIT @ 1800. PATIENT IN STABLE CONDITION, NO S/S OF DISTRESS NOTED. NO CHEST PAIN VOICED. TELEMETRY APPLIED. BED IN LOWEST POSITION AND LOCKED. CALL LIGHT WITHIN REACH.
--- NOTE | 2019-10-12 18:49 | NUR ---
Nutrition Screen Note RD Recommendation for Physician: - Recommend Cardiac diet restrictions Plan of Care: RD following, monitoring for tolerance and adequacy Nutrition reason for involvement: Nutrition risk trigger Primary Diagnose(s): chest pain PMH: ID, CAD, HTN, HLD, DM Ht: 66 in Wt: 222 lb BMI: 35.8 kg/m2 IBW: [address] Assessment: 10/11: 49 YOM admitted for chest pain with hx of ID, evaluated today per MST screen. Attempt to contact pt x 2, no answer on room phone. No reported wt loss or poor intake indicated on admit. Pt currently eating 75% of meals. No GI distress reported. Labs and meds reviewed. Will continue to monitor. Current Diet: 1800 ADA Malnutrition Evaluation (10/12/19) The patient does not meet criteria for a specified degree of malnutrition at this time. Will re-evaluate at follow-up as appropriate. Diet Education Needs Assessment: Diet education indicated, pt not available at this time. Diet tolerance: tolerating po Nutrition Care Level: low Signed: Lucila Thomas RD, LD, [facility]
--- NOTE | 2019-10-12 18:57 | Progress Note ---
DATE: Cardiology Progress Note SUBJECTIVE: The patient is feeling better. No further chest pain. OBJECTIVE: VITAL SIGNS: Temperature is 97.7, heart rate is 57, respirations are 18, blood pressure is 129/82, and oxygen saturation 98% on room air. GENERAL: Well appearing, in no apparent distress. CARDIOVASCULAR: Regular rate and rhythm. LUNGS: Clear to auscultation. ABDOMEN: Soft, nontender, and nondistended. EXTREMITIES: No clubbing, cyanosis, or edema. LABORATORY DATA: Reviewed. Troponin negative x3. Echocardiogram reviewed and showed low-normal left ventricular ejection fraction of 50% to 55% with aortic valve sclerosis without stenosis. Nuclear stress test showed anterior nontransmural scar mixed with ischemia. IMPRESSION: 1. Precordial pain. 2. History of coronary artery disease, status post prior percutaneous coronary intervention. 3. Abnormal stress test. 4. Hypertension. 5. Hyperlipidemia. 6. Diabetes mellitus. RECOMMENDATIONS: The patient had low-normal ejection fraction on his echo with anterior ischemia. Continue current cardiovascular medications. The patient will require coronary angiography with possible intervention tomorrow morning. DO RAMOS Quintana/MODL /[id number]
--- NOTE | 2019-10-12 20:34 | NUR ---
Pt's blood glucose level 167. Humalog sliding scale ordered as needed. Pt refused Humalog 4 units at this time because he states "I have not eaten much today." No other needs at this time. Pt aware that he will be NPO after midnight for heart catheterization in AM. Will continue to monitor.
[2019-10-13] VITALS (7 sets, daily range): BP systolic 113–139; BP diastolic 66–78
[2019-10-13 05:48] LABS: BASOPHILS % 0.5 % (0.0-1.0); EOSINOPHILS # (AUTO) 0.2 (0.0-0.4); EOSINOPHILS % 2.6 % (0.0-6.0); HEMATOCRIT 46.5 % (38.2-49.6); HEMOGLOBIN 15.1 g/dL (14.0-18.0); LYMPHOCYTES # (AUTO) 1.8 (1.0-3.2); LYMPHOCYTES % 20.7 % (18.0-39.1); MEAN CORPUSCULAR HEMOGLOBIN 29.8 pg (28-32); MEAN CORPUSCULAR HGB CONC 32.5 g/dL (31-35); MEAN CORPUSCULAR VOLUME 91.7 fL (81-99); MONOCYTES # (AUTO) 0.7 (0.2-0.8); MONOCYTES % 7.9 % (4.4-11.3); NEUTROPHILS # (AUTO) 5.9 (2.1-6.9); NEUTROPHILS % 67.5 % (38.7-80.0); PLATELET COUNT 265 x10e3/uL (140-360); RED BLOOD COUNT 5.07 x10e6/uL (4.3-5.7); RED CELL DISTRIBUTION WIDTH 13.3 % (11.7-14.4)
[2019-10-13 06:06] LABS: ALANINE AMINOTRANSFERASE 24 IU/L (0-55); ALBUMIN 3.4 g/dL (3.5-5.0); ALBUMIN/GLOBULIN RATIO 0.9 (0.8-2.0); ALKALINE PHOSPHATASE 92 IU/L (40-150); BLOOD UREA NITROGEN 16 mg/dL (7-26); BUN/CREATININE RATIO 21 (6-25); CALCIUM 8.7 mg/dL (8.4-10.2); CARBON DIOXIDE 23 mmol/L (22-29); CHLORIDE 105 mmol/L (98-107); CREATININE, SERUM 0.78 mg/dL (0.72-1.25); EST GLOMERULAR FILTRATION RATE > 60 ML/MIN (60-); GLUCOSE 105 mg/dL (74-118); SODIUM 138 mmol/L (136-145)
[2019-10-13] MEDS: INSULIN LISPRO 100 UNIT/1 ML 3ML VIAL SQ SCH ×3 (07:30→16:28)
[2019-10-13] MEDS: FAMOTIDINE 20 MG TAB PO SCH ×2 (07:30→16:30)
[2019-10-13] MEDS: ASPIRIN 81 MG CHEW TAB PO SCH ×2 (09:00→16:30)
[2019-10-13] MEDS: DOCUSATE SODIUM 100 MG CAP PO SCH ×2 (09:00→16:30)
--- NOTE | 2019-10-13 09:10 | NUR ---
BEDSIDE SHIFT REPORT RECEIVED FROM THE DAY SHIFT SUPERVISOR DOPING. EDUCATED PT ABOUT FALL PRECAUTIONS. PT VERBALIZED UNDERSTANDING. CALL LIGHT WITH IN EASY REACH. BED IS LOW AND LOCKED. SIDE RAILS X2. PT IS ON NPO. ALL SAFETY MEASURES IN PLACE. PT DENIES NEEDS AT THIS TIME.
--- NOTE | 2019-10-13 10:37 | Progress Note ---
DATE: Cardiology Progress Note SUBJECTIVE: No chest pain or shortness of breath. OBJECTIVE: VITAL SIGNS: Temperature 97.8, heart rate 56, respirations 20, blood pressure is 138/74, and oxygen saturation 97% on room air. GENERAL: Well appearing, well built, no apparent distress. Alert and orient x3. CARDIOVASCULAR: Bradycardic, regular rhythm. LUNGS: Clear to auscultation. ABDOMEN: Soft, nontender, nondistended. EXTREMITIES: No clubbing, cyanosis, or edema. LABORATORY DATA: Reviewed. Creatinine is 0.78, potassium 4. Hemoglobin is 15. Echocardiogram showed ejection fraction of 50% to 55% with aortic sclerosis. Nuclear stress test showed anterior ischemia. IMPRESSION: 1. Precordial pain. 2. History of coronary artery disease, status post prior percutaneous coronary intervention. 3. Abnormal stress test. 4. Hypertension. 5. Hyperlipidemia. 6. Diabetes mellitus. RECOMMENDATIONS: Continue current cardiovascular medications consisting of aspirin, atorvastatin, and clopidogrel. Beta junior was not given due to bradycardia. The patient will need coronary angiography with possible intervention. DO RAMOS Quintana/MODL /[id number]
[2019-10-13] MEDS ORDERED: MIDAZOLAM HCL 2 MG/2 ML VIAL ONE (14:42)
[2019-10-13] MEDS ORDERED: FENTANYL CITRATE/PF 100MCG/2 ML INJ ONE (14:43)
[2019-10-13] MEDS ORDERED: LIDOCAINE HCL 2% LOCAL 20 ML VIAL ONE (14:43)
[2019-10-13] MEDS ORDERED: HEPARIN SOD/SOD CHLORIDE 2,000 ML ONE (14:43)
[2019-10-13] MEDS ORDERED: IOPAMIDOL 370 MG/ML 200 ML INFUS..BTL INJ ONE (14:43)
[2019-10-13] MEDS ORDERED: SODIUM CHLORIDE 0.9% 1000ML 1,000 ML ONE (14:44)
--- NOTE | 2019-10-13 15:00 | NUR ---
PT OFF UNIT TO METHODS SPECIALIST ENGINEER IN SAFE CONDITION.
[2019-10-13] MEDS ORDERED: SODIUM CHLORIDE 0.9% 1000ML 1,000 ML IV SCH (16:15)
--- NOTE | 2019-10-13 16:15 | NUR ---
PT IS BACK TO THE UNIT FROM CHIEF II DISPATCHER. SITE IS [facility]. IV FLUIDS RUNNING AT 75 ML/HR PER DR. MUJICA. PT DENIES NEEDS AT THIS TIME.
[2019-10-13] MEDS: ATORVASTATIN 20 MG TAB PO SCH (16:30)
--- NOTE | 2019-10-13 18:29 | NUR ---
DELMAR TO DISCHARGE PT AFTER 193 (POST HEART CATH BED REST [address] ) PER DR[address] MUJICA, AND MICHELLE KEITA.
--- NOTE | 2019-10-13 19:00 | NUR ---
BEDSIDE SHIFT REPORT GIVEN TO THE COAL TRAMMER RN. PT DENIED FURTHER NEEDS. PT IS WAITING FOR DISCHARGE.
--- NOTE | 2019-10-13 20:59 | NUR ---
Pt discharged per orders. Pt alert and awake. No signs of distress. Right groin incision bandage clean, dry, and intact. No bleeding or hematoma present. Pedal pulses strong. Vitals stable. Pt transported via wheelchair to discharge area. to drive pt home. Pt left with discharge papers and prescription for Pepcid.
--- NOTE | 2019-10-14 04:22 | Discharge Summary ---
ADMISSION DIAGNOSES: Chest pain, hypertension, hyperlipidemia, type 2 diabetes, obesity with a BMI of 35.8. DISCHARGE DIAGNOSES: Chest pain, hypertension, hyperlipidemia, type 2 diabetes, obesity with a BMI of 35.8, rule out acute coronary syndrome. HISTORY: Hypertension, hyperlipidemia, [place], CAD with PCI x2, type 2 diabetes. SURGICAL HISTORY: Right wrist surgery and PCI x2. FAMILY HISTORY: The patient's mother has diabetes. The patient's father had a stroke. SOCIAL HISTORY: Occasional alcohol use. HOSPITAL COURSE: A 49-year-old male, admitted with complaints of back and chest pain. The back pain began on Thursday. He denies accidents and strenuous activities. Then, Thursday morning, he began having right-sided chest/axillary pain, described as an ache. He came to the ER when the pain radiated to his mid chest. Pain worsens with movement. He denies shortness of breath, dizziness, and diaphoresis. On admission, troponins were negative x3. Chest x-ray was negative. Echo showed an EF of 45% to 50%. The patient's A1c and TSH were within normal limits. His triglycerides were slightly elevated at 156. The patient was taken to a stress test per Cardiology recommendation. The stress test showed anterior ischemia. So, a heart catheterization was ordered. Following the heart catheterization, no intervention was necessary and the patient can discharge home on the same medications. He will follow up with primary care and Cardiology in 1 to 2 weeks. The patient understands discharge instructions and agrees to plan. Vital signs stable, the patient is afebrile. Dictated by Maryjane Champagne NP MD WANDY Sandoval/MODL /[id number]
--- NOTE | 2019-10-19 15:50 | Myoview Stress Test ---
DATE OF STUDY: 10/11/2019 12:10:00 Stress Test - Treadmill ONLY PROCEDURE TITLE: Rest/stress single isotope SPECT imaging with pharmacologic stress and gated SPECT imaging. INDICATION: Chest pain PROCEDURE IN DETAIL: Pharmacologic stress testing was performed with regadenoson per protocol. The heart rate was 62 beats per minute at rest and increased to 90 beats per minute during the regadenoson infusion. The resting blood pressure 123/86 mmHg and increased to 138/78 mmHg, which is a normal response. The resting electrocardiogram demonstrated sinus bradycardia. There were no ST-segment changes suggestive of myocardial ischemia. Myocardial perfusion imaging was performed at rest following the injection of 11 mCi of tetrofosmin. At peak pharmacologic effect, the patient was injected with 30 mCi of tetrofosmin. Gated post-stress tomographic imaging was performed. FINDINGS: The overall quality of the study is fair. Left ventricular cavity is noted to be normal size on the rest and stress studies. SPECT images demonstrate homogeneous tracer distribution throughout the myocardium. Gated SPECT imaging reveals normal myocardial thickening and wall motion. Overall left ventricular systolic function was calculated to be 50% CONCLUSION: Myocardial perfusion imaging is normal. Overall, left ventricular systolic function was normal without regional wall motion abnormalities. Luiza Mcdaniels MD ABS/MODL /[id number]
== END 2019-10-13 20:50 | disposition home or self-care (01) ==
LOC: FSED 08:14 → ERHOLD 10:18 → MED/SURG3 11:57
PROVIDERS: ADMIT Internal Medicine; ATTEND Internal Medicine
DX: R07.89 Other chest pain (principal); E78.5 Hyperlipidemia, unspecified; E11.9 Type 2 diabetes mellitus without complications; E66.9 Obesity, unspecified; Z68.35 Body mass index [BMI] 35.0-35.9, adult
CPT/HCPCS: 36415 ×3; 71046; 78452; 80048; 80053 ×2; 80061; 80076; 81001; 82550 ×2; 82553 ×2; 82948 ×3; 83036; 83735; 84100; 84443; 84484 ×2; 85025 ×3; 93005; 93017; 93306; 97139; 97161; 99284; A9502; C1760; G0378 ×3; J2001; J2250; J2270; J2405; J2785; J3010; J7030; Q9967; U0002; 93458; 99152